=== PATIENT | female | born 1950 | race American Indian/Alaskan Native ===

== ENCOUNTER 2016-12-23 19:49 | Inpatient (IN) | payer MEDICAID, MEDICARE ==
[2016-12-23] MEDS ORDERED: NACL 0.9% 1000 ML 1,000 ML IV ONE (20:00)
--- NOTE | 2016-12-23 20:14 | Emergency Department Report ---
ED General Adult HPI - General Stated complaint: AMS Time Seen by Provider: 12/23/16 19:53 Source: patient, EMS Limitations: Other (confusion- ed caveat taken) - History of Present Illness Initial comments: This is a 66-year-old female brought on by EMS according to family patient has had unsteady gait today. EMS noted on scene that the patient had a blood sugar greater than 600. When family was questioned regarding this they state that the patient was admitted to the hospital approximately a half ago at [place]. She was told at that time she had diabetes and needed to take medications for this. Family failed to comply with this. It was in the hospital [place] due to some mental status changes as well. She was noted that noted at that time to have neurosyphilis. She was successfully treated for this. She also has underlying dementia. According to old notes it appears that she has had encephalopathy in the past as well. Lower emergency department in March 2016 regarding similar symptoms. Aspect portion of this was probably related to her neurosyphilis that it got untreated. For me at this time the patient complains of no pain. She does report dry mouth. I states that she is feeling well. She is somewhat poor historian. -: Gradual, days(s) (5) Radiation: non-radiation Associated Symptoms: denies: chest pain, cough, fever/chills, headaches, rash, shortness of breath Treatments Prior to Arrival: none - Related Data Home Medications Medication Instructions Recorded Confirmed Last Taken Acetaminophen [Tylenol] 650 mg PO Q6HR PRN 04/04/16 04/04/16 Unknown Allergies Allergy/AdvReac Type Severity Reaction Status Date / Time No Known Allergies Allergy Verified 04/04/16 20:10 ED Review of Systems ROS: Stated complaint: AMS Other details as noted in HPI Comment: Unobtainable due to pts medical conditions Constitutional: denies: fever ENT: other (dry mouth). denies: throat pain, dental pain, congestion Cardiovascular: denies: chest pain, palpitations Gastrointestinal: denies: abdominal pain, nausea, vomiting Skin: denies: rash ED Past Medical Hx - Past Medical History Hx Diabetes: No Hx COPD: No - Social History Smoking Status: Never Smoker - Medications Home Medications: Home Medications Medication Instructions Recorded Confirmed Last Taken Type Acetaminophen [Tylenol] 650 mg PO Q6HR PRN 04/04/16 04/04/16 Unknown History ED Physical Exam - General Limitations: Altered Mental Status General appearance: alert, in no apparent distress - Head Head exam: Present: atraumatic, normocephalic - Eye Eye exam: Present: normal appearance, PERRL, EOMI - ENT ENT exam: Present: normal orophraynx, mucous membranes dry, other (poor dentition) - Neck Neck exam: Present: normal inspection - Respiratory Respiratory exam: Present: normal lung sounds bilaterally. Absent: respiratory distress, wheezes, rales - Cardiovascular Cardiovascular Exam: Present: regular rate, normal rhythm. Absent: systolic murmur, diastolic murmur, rubs, gallop - GI/Abdominal GI/Abdominal exam: Present: soft, normal bowel sounds - Extremities Exam Extremities exam: Present: normal inspection, other (moves all extremities purposefully and spontaneously.). Absent: pedal edema, joint swelling, calf tenderness - Back Exam Back exam: Present: normal inspection. Absent: CVA tenderness (R), vertebral tenderness - Neurological Exam Neurological exam: Present: alert, oriented X3. Absent: motor sensory deficit - Psychiatric Psychiatric exam: Present: normal affect, normal mood - Skin Skin exam: Present: warm, dry, intact, normal color. Absent: rash ED Course Vital Signs 12/23/16 12/23/16 12/23/16 20:17 20:26 22:26 Temperature 98.9 F 97.9 F 98.5 F Pulse Rate 86 77 72 Respiratory 24 19 20 Rate Blood Pressure 137/79 Blood Pressure 137/79 115/92 124/74 [Right] O2 Sat by Pulse 97 98 99 Oximetry 12/23/16 12/24/16 12/24/16 23:44 00:00 02:00 Temperature 97.9 F 98.7 F Pulse Rate 73 70 Respiratory 20 20 Rate Blood Pressure Blood Pressure 108/82 107/41 [Right] O2 Sat by Pulse 99 98 99 Oximetry 12/24/16 04:00 Temperature 98.5 F Pulse Rate 64 Respiratory 21 Rate Blood Pressure Blood Pressure 110/68 [Right] O2 Sat by Pulse 100 Oximetry - Reevaluation(s) Reevaluation #1: 12/23/16 20:19 ECG at 2007 with normal sinus rhythm at 87 bpm with normal PA and QRS noted. Normal axis is noted nonspecific T waves are noted. Reevaluation #2: 12/23/16 20:19 This is a patient with mild confusion from here today she is a relatively poor historian. Her vital signs very stable at this time. Will focus on sugars And continue to monitor and evaluated. Reevaluation #3: 12/23/16 22:18 Patient's labs noted. PH is close to appropriate range. She is noted to have positive ketones hematologically. Her co2 was slightly affected as well. Will call her diabetic ketoacidosis. He clearly has some delirium or confusion as well. I suspect most of this is baseline. I do not have family to Corroborate this with. hemodynamically she is comfortable and well-appearing..I Did speak with the hospitalist regarding admission. 12/24/16 06:00 ED Medical Decision Making - Lab Data Result diagrams: 12/23/16 20:15 12/24/16 02:40 Critical care attestation.: If time is entered above; I have spent that time in minutes in the direct care of this critically ill patient, excluding procedure time. ED Disposition Clinical Impression: Delirium Diabetic ketoacidosis Qualifiers: Diabetes mellitus type: type 2 Diabetes mellitus complication detail: without coma Qualified Code(s): E13.10 - Other specified diabetes mellitus with ketoacidosis without coma Disposition: OP ADMITTED IP TO THIS HOSP Is pt being admited?: Yes Does the pt Need Aspirin: No Condition: Stable Time of Disposition: 22:17
[2016-12-23 20:48] LABS: Basophils % (Auto) 0.7 % (0.0-1.8); Eosinophils % (Auto) 0.2 % (0.0-4.3); Hematocrit 39.7 % (30.3-42.9); Hemoglobin 12.5 gm/dl (10.1-14.3); Mean Corpuscular HGB Conc 32 % (30-34); Mean Corpuscular Hemoglobin 27 pg (28-32); Mean Corpuscular Volume 86 fl (79-97); Platelet Count 219 K/mm3 (140-440); Red Cell Distribution Width 14.1 % (13.2-15.2); White Blood Count 9.9 K/mm3 (4.5-11.0)
[2016-12-23 20:57] LABS: Alanine Aminotransferase 20 units/L (7-56); Albumin 4.5 g/dL (3.9-5); Albumin/Globulin Ratio 1.2 %; Alkaline Phosphatase 127 units/L (35-129); Anion Gap 30 mmol/L; BUN/Creatinine Ratio 14.16; Bilirubin,Total 0.6 mg/dL (0.1-1.2); Blood Urea Nitrogen 17 mg/dL (7-17); Calcium 9.9 mg/dL (8.4-10.2); Carbon Dioxide 14 mmol/L (22-30); Chloride 97.2 mmol/L (98-107); Potassium 4.3 mmol/L (3.6-5.0); Sodium 137 mmol/L (137-145); Total Protein 8.2 g/dL (6.3-8.2)
[2016-12-23 21:00] LABS: Glucose 505 mg/dL (65-100)
--- NOTE | 2016-12-23 22:54 | History and Physical Report ---
History of Present Illness Date of examination: 12/24/16 History of present illness: 66-year-old woman history of dementia, diabetes was brought to the emergency room because her blood sugar has been elevated. Patient states she is here because she is sick, she is unable to give a history: Unable to reach family. Review of system is unobtainable PAST SURGICAL HISTORY: Unknown SOCIAL HISTORY: Unknown FAMILY HISTORY: Unknown Medications and Allergies Allergies Allergy/AdvReac Type Severity Reaction Status Date / Time No Known Allergies Allergy Verified 04/04/16 20:10 Home Medications Medication Instructions Recorded Confirmed Last Taken Type Aspirin 81 mg PO DAILY 12/24/16 12/24/16 Unknown History Cholecalciferol (Vitamin D3) 50,000 unit PO DAILY 12/24/16 12/24/16 Unknown History [Decara] Haloperidol [Haldol] 1 mg PO TID 12/24/16 12/24/16 Unknown History Ibuprofen [Motrin] 200 mg PO Q6H PRN 12/24/16 12/24/16 Unknown History Rosuvastatin Calcium 20 mg PO DAILY 12/24/16 12/24/16 Unknown History amLODIPine [Norvasc] 5 mg PO DAILY 12/24/16 12/24/16 Unknown History metFORMIN [Glucophage] 500 mg PO BID 12/24/16 12/24/16 Unknown History Exam - Physical Exam Narrative exam: Gen. appearance: Patient lying in bed, no apparent distress HEENT: Normocephalic, atraumatic, pupils equally round and reactive to light, extraocular movement intact, and no sclericterus,. No JVD or thyromegaly or nodule,neck supple, no carotid bruit ,mucous membranes moist, no exudate or erythema Heart: S1, S2, regular rate and rhythm Lungs: Clear to auscultation bilaterally, breathing comfortable Abdomen: Positive bowel sounds, nontender, nondistended, no organomegaly Extremity: No edema, cyanosis, clubbing Skin: No rash, nodules, warm, dry Neuro: cranial nerves II-12 intact, speech is fluent, motor and sensory intact - Constitutional Vitals: Temp Pulse Resp BP Pulse Ox 98.9 F 86 24 137/79 97 12/23/16 20:17 12/23/16 20:17 12/23/16 20:17 12/23/16 20:17 12/23/16 20:17 Results - Labs CBC & Chem 7: 12/26/16 04:33 12/27/16 05:45 Labs: Abnormal lab results 12/23/16 12/23/16 12/23/16 Range/Units 20:05 20:15 20:15 MCH 27 L (28-32) pg Chloride 97.2 L (98-107) mmol/L Carbon Dioxide 14 L (22-30) mmol/L Glucose 505 H* (65-100) mg/dL POC Glucose 479 H (70-105) Ketones (0.2-2.8) mg/dL 12/23/16 Range/Units 20:22 MCH (28-32) pg Chloride (98-107) mmol/L Carbon Dioxide (22-30) mmol/L Glucose (65-100) mg/dL POC Glucose (70-105) Ketones 41.9 H (0.2-2.8) mg/dL - Imaging and Cardiology EKG: image reviewed Assessment and Plan DKA Dementia Admit to medicine Start IV fluid, insulin drip Check fingersticks, serial chemistry, consult critical care Start DVT prophylaxis
[2016-12-23 22:59] LABS: Bilirubin,Urine NEG (Negative); Blood,Urine MOD (Negative); Ketones,Urine 80 mg/dL (Negative); Leukocyte Esterase,Urine NEG (Negative); Mucus,Urine FEW /HPF; Nitrite,Urine NEG (Negative); Urobilinogen,Urine < 2.0 mg/dL (<2.0)
[2016-12-23] MEDS ORDERED: TYLENOL PR PRN (23:44)
[2016-12-23] MEDS ORDERED: TYLENOL PO PRN (23:44)
[2016-12-23] MEDS ORDERED: D50W (25GM) IV PRN (23:44)
[2016-12-23] MEDS ORDERED: ZOFRAN IV PRN (23:44)
[2016-12-23] MEDS ORDERED: MILK OF MAGNESIA PO PRN (23:44)
[2016-12-23] MEDS ORDERED: DULCOLAX PR PRN (23:44)
[2016-12-23] MEDS ORDERED: NovoLIN R 100 UNITS in NACL 0.9% 99 ML IV SCH (23:45)
[2016-12-23] MEDS ORDERED: NACL 0.9% 1000 ML 1,000 ML IV SCH (23:45)
[2016-12-24 00:48] LABS: Magnesium 2.2 mg/dL (1.7-2.3)
[2016-12-24 01:12] LABS: Anion Gap 24 mmol/L; Blood Urea Nitrogen 15 mg/dL (7-17); Calcium 9.2 mg/dL (8.4-10.2); Carbon Dioxide 17 mmol/L (22-30); Chloride 106.2 mmol/L (98-107); Glucose 171 mg/dL (65-100); Potassium 4.7 mmol/L (3.6-5.0); Sodium 142 mmol/L (137-145)
[2016-12-24 03:22] LABS: Anion Gap 21 mmol/L; BUN/Creatinine Ratio 15.55; Blood Urea Nitrogen 14 mg/dL (7-17); Calcium 9.2 mg/dL (8.4-10.2); Carbon Dioxide 17 mmol/L (22-30); Chloride 108.3 mmol/L (98-107); Glucose 76 mg/dL (65-100); Potassium 3.6 mmol/L (3.6-5.0); Sodium 143 mmol/L (137-145)
[2016-12-24] MEDS: D5W/0.45% NACL/KCL 20 MEQ 20 MEQ/1,000 ML BAG IV SCH ×2 (07:06→15:24)
--- NOTE | 2016-12-24 07:06 | Admit Criteria Form ---
Admission Criteria Documentation: DIABETES Clinical Indications for Admission to Inpatient Care (Place 'X' for any and all applicable criteria): Admission is indicated by presence of ALL (if I & II) or ANY ONE (if III or IV) of the following (1)(2)(3)(4): [X]I. Diabetes is uncontrolled as indicated by ANY ONE of the following: [X]a) Diabetic ketoacidosis as indicated by ALL of the following (8): [X]i) Hyperglycemia (eg, plasma glucose greater than 200 mg/ dL (11.1 mmol/L)) [ ]ii) Acidosis (eg, arterial pH less than 7.30, serum bicarbonate level less than 15 mEq/L (mmol/L)) [X]iii) Moderate ketonuria or ketonemia [ ]b) Hyperglycemic hyperosmolar state as indicated by ALL of the following(9)(10): [ ]i) Neurologic dysfunction (eg, stupor, coma, hemiparesis , seizure)(13) [ ]ii) Plasma glucose greater than 600 mg/dL (33.3 mmol/L) [ ]iii) Serum osmolality greater than 320 mOsm/kg (mmol/kg) [X]c) Severe signs or symptoms secondary to hyperglycemia indicated by ANY ONE of the following: [X]i) Altered mental status(10) [ ]ii) Significant hypovolemia or dehydration [ ]iii) Intractable nausea or vomiting [ ]iv) Unexplained fever or severe infection [ ]v) Severe electrolyte abnormality (eg, hypokalemia, hyperkalemia, hypernatremia) [ ]II. Management at other levels of care (Also use Diabetes: Observation Care as appropriate) is not feasible because of ANY ONE of the following: [ ]a) Condition was not adequately corrected with treatment at other levels of care. [ ]b) Treatment at other levels of care is not appropriate because of condition severity (eg, hyperosmolar coma). [ ]III. Contraindications and/or Inappropriate clinical situations for Observational Care in patients with Diabetes, when ANY ONE of the following is required: [ ]a) Patient require specific diagnostic workup or therapeutic intervention 22 [ ]b) Patient with abnormal vital signs or altered mental status 23 [ ]IV. General contraindications and/or Inappropriate clinical situations for Observational Care in patients with Diabetes, when ANY ONE of the following is required: [ ]a) Prediction of prolongation of LOS based on ANY ONE of the following may be considered as a contraindication for observational care 2, 3, 4, 5, 6, 7, 8, 9, 10, 11 [ ]i) Age > 65 yrs. [ ]ii) Patient arriving by ambulance [ ]iii) Patient with high acuity [ ]iv) Patient requiring vital sign monitoring [ ]v) Patient on IV medication [ ]b) Systolic blood pressures 180mmHg 3,12 [ ]c) Patient with altered mental status including delirium and other alteration of consciousness, (3) [ ]d) Patient whose discharge disposition will be to a intermediate home or rehabilitation home should not be managed in Emergency Department Observation Unit. CMS rule requires 3 days hospital stay before such placement.3,13 [ ]e) Patient with failure to thrive due to broad array of etiologies 3,16,17 [ ]f) Inability to ambulate 3,14 Extended stay beyond goal length of stay may be needed for(3)(20): [ ]a) Treatment of precipitating causes [ ]b) Development of hypoglycemia [ ]c) Complications of treatment [ ]d) Complications of decompensated diabetes (eg, acute gastric dilatation, persistent metabolic or neurologic derangement) [ ]e) Active Comorbidities [ ]f) Older patients( 65 years or older) The original [employer] content created by [employer] has been revised. The portions of the content which have been revised are identified through the use of italic text or in bold,and [email or web address] has neither reviewed nor approved the modified material. All other unmodified content is copyright [employer]. Please see references footnoted in the original [facility] [employer] edition 2016 Admission Criteria Met: Yes
--- NOTE | 2016-12-24 07:17 | Admit Criteria Form ---
Admission Criteria Documentation: DIABETES Clinical Indications for Admission to Inpatient Care (Place 'X' for any and all applicable criteria): Admission is indicated by presence of ALL (if I & II) or ANY ONE (if III or IV) of the following (1)(2)(3)(4): [ X]I. Diabetes is uncontrolled as indicated by ANY ONE of the following: [ ]a) Diabetic ketoacidosis as indicated by ALL of the following (8): [ ]i) Hyperglycemia (eg, plasma glucose greater than 200 mg/ dL (11.1 mmol/L)) [ ]ii) Acidosis (eg, arterial pH less than 7.30, serum bicarbonate level less than 15 mEq/L (mmol/L)) [ ]iii) Moderate ketonuria or ketonemia [ ]b) Hyperglycemic hyperosmolar state as indicated by ALL of the following(9)(10): [ ]i) Neurologic dysfunction (eg, stupor, coma, hemiparesis , seizure)(13) [ ]ii) Plasma glucose greater than 600 mg/dL (33.3 mmol/L) [ ]iii) Serum osmolality greater than 320 mOsm/kg (mmol/kg) [X ]c) Severe signs or symptoms secondary to hyperglycemia indicated by ANY ONE of the following: [X ]i) Altered mental status(10) [ ]ii) Significant hypovolemia or dehydration [ ]iii) Intractable nausea or vomiting [ ]iv) Unexplained fever or severe infection [ ]v) Severe electrolyte abnormality (eg, hypokalemia, hyperkalemia, hypernatremia) [ ]II. Management at other levels of care (Also use Diabetes: Observation Care as appropriate) is not feasible because of ANY ONE of the following: [ ]a) Condition was not adequately corrected with treatment at other levels of care. [ ]b) Treatment at other levels of care is not appropriate because of condition severity (eg, hyperosmolar coma). [ ]III. Contraindications and/or Inappropriate clinical situations for Observational Care in patients with Diabetes, when ANY ONE of the following is required: [ ]a) Patient require specific diagnostic workup or therapeutic intervention 22 [ ]b) Patient with abnormal vital signs or altered mental status 23 [ ]IV. General contraindications and/or Inappropriate clinical situations for Observational Care in patients with Diabetes, when ANY ONE of the following is required: [ ]a) Prediction of prolongation of LOS based on ANY ONE of the following may be considered as a contraindication for observational care 2, 3, 4, 5, 6, 7, 8, 9, 10, 11 [ ]i) Age > 65 yrs. [ ]ii) Patient arriving by ambulance [ ]iii) Patient with high acuity [ ]iv) Patient requiring vital sign monitoring [ ]v) Patient on IV medication [ ]b) Systolic blood pressures 180mmHg 3,12 [ ]c) Patient with altered mental status including delirium and other alteration of consciousness, (3) [ ]d) Patient whose discharge disposition will be to a intermediate home or rehabilitation home should not be managed in Emergency Department Observation Unit. CMS rule requires 3 days hospital stay before such placement.3,13 [ ]e) Patient with failure to thrive due to broad array of etiologies 3,16,17 [ ]f) Inability to ambulate 3,14 Extended stay beyond goal length of stay may be needed for(3)(20): [ ]a) Treatment of precipitating causes [ ]b) Development of hypoglycemia [ ]c) Complications of treatment [ ]d) Complications of decompensated diabetes (eg, acute gastric dilatation, persistent metabolic or neurologic derangement) [ ]e) Active Comorbidities [ ]f) Older patients( 65 years or older) The original [employer] content created by [employer] has been revised. The portions of the content which have been revised are identified through the use of italic text or in bold,and [facility] has neither reviewed nor approved the modified material. All other unmodified content is copyright [facility]. Please see references footnoted in the original [facility] edition 2016 Admission Criteria Met: Yes
[2016-12-24 08:38] LABS: Anion Gap 23 mmol/L; Blood Urea Nitrogen 14 mg/dL (7-17); Calcium 9.3 mg/dL (8.4-10.2); Carbon Dioxide 17 mmol/L (22-30); Glucose 183 mg/dL (65-100); Potassium 4.3 mmol/L (3.6-5.0); Sodium 144 mmol/L (137-145)
[2016-12-24] MEDS ORDERED: LOVENOX SUB-Q SCH (10:00)
--- NOTE | 2016-12-24 10:18 | XRay Report ---
AP CHEST: HISTORY: Shortness of breath AP view of the chest demonstrates a normal mediastinal and cardiac contour with clear lungs and normal bony and soft tissue structures. IMPRESSION: No acute cardiopulmonary process.
[2016-12-24] MEDS: LOVENOX SUB-Q SCH (10:52)
[2016-12-24 14:23] LABS: BUN/Creatinine Ratio 16.25; Blood Urea Nitrogen 13 mg/dL (7-17); Calcium 8.5 mg/dL (8.4-10.2); Carbon Dioxide 16 mmol/L (22-30); Glucose 122 mg/dL (65-100)
[2016-12-24 14:24] LABS: Anion Gap 18 mmol/L; Chloride 110.1 mmol/L (98-107); Potassium 3.6 mmol/L (3.6-5.0); Sodium 140 mmol/L (137-145)
--- NOTE | 2016-12-24 15:03 | Consultation ---
History of Present Illness Consult date: 12/24/16 Requesting physician: CORAZON SHEETS Reason for consult: other (DKA) History of present illness: 66 yo brought to ED with confusion/altered mental status. Unable to provide history and no family present. Currently more alert and denying SOB, chest pain , N/V fevers, chills, chest pain. Wants to eat. On insulin drip. Active Medications Acetaminophen (Tylenol) 650 mg MI Q6H PRN PRN Reason: Pain MILD(1-3)/Fever >100.5/CONDON Acetaminophen (Tylenol) 650 mg PO Q6H PRN PRN Reason: Pain Bisacodyl (Dulcolax) 10 mg MI QDAY PRN PRN Reason: constipation unrelieved by MOM Dextrose (D50w (25gm)) 0 ml IV ONCE PRN PRN Reason: Hypoglycemia Enoxaparin Sodium (Lovenox) 40 mg SUB-Q QDAY@1000 MATILDE Last Admin: 12/24/16 10:52 Dose: 40 mg Potassium Chloride/Dextrose/Sod Cl (D5w/0.45% Nacl/Kcl 20 Meq) 20 meq in 1,000 mls @ 125 mls/hr IV DIRECT MATILDE Last Admin: 12/24/16 07:06 Dose: 125 mls/hr Sodium Chloride (Nacl 0.9% 1000 Ml) 1,000 mls @ 150 mls/hr IV DIRECT MATILDE Insulin Human Regular 100 (units/ Sodium Chloride) 100 mls @ 1 mls/hr IV TITR MATILDE; 1 UNITS/HR PRN Reason: Protocol Last Titration: 12/24/16 14:00 Dose: 2 units/hr, 2 mls/hr Magnesium Hydroxide (Milk Of Magnesia) 30 ml PO Q4H PRN PRN Reason: Constipation Ondansetron HCl (Zofran) 4 mg IV Q8H PRN PRN Reason: N/V unrelieved by Reglan Past History Past Medical History: other (DM, HTN, ? Dementia per chart) Past Surgical History: Other (Unable to obtain) Social history: full code. denies: smoking, alcohol abuse, prescription drug abuse, IV drug use Family history: other (No pulm issues reported) Medications and Allergies Allergies Allergy/AdvReac Type Severity Reaction Status Date / Time No Known Allergies Allergy Verified 04/04/16 20:10 Home Medications Medication Instructions Recorded Confirmed Last Taken Type Aspirin 81 mg PO DAILY 12/24/16 12/24/16 Unknown History Cholecalciferol (Vitamin D3) 50,000 unit PO DAILY 12/24/16 12/24/16 Unknown History [Decara] Haloperidol [Haldol] 1 mg PO TID 12/24/16 12/24/16 Unknown History Ibuprofen [Motrin] 200 mg PO Q6H PRN 12/24/16 12/24/16 Unknown History Rosuvastatin Calcium 20 mg PO DAILY 12/24/16 12/24/16 Unknown History amLODIPine [Norvasc] 5 mg PO DAILY 12/24/16 12/24/16 Unknown History metFORMIN [Glucophage] 500 mg PO BID 12/24/16 12/24/16 Unknown History Active Meds: Active Medications Acetaminophen (Tylenol) 650 mg MI Q6H PRN PRN Reason: Pain MILD(1-3)/Fever >100.5/CONDON Acetaminophen (Tylenol) 650 mg PO Q6H PRN PRN Reason: Pain Bisacodyl (Dulcolax) 10 mg MI QDAY PRN PRN Reason: constipation unrelieved by MOM Dextrose (D50w (25gm)) 0 ml IV ONCE PRN PRN Reason: Hypoglycemia Enoxaparin Sodium (Lovenox) 40 mg SUB-Q QDAY@1000 MATILDE Last Admin: 12/24/16 10:52 Dose: 40 mg Potassium Chloride/Dextrose/Sod Cl (D5w/0.45% Nacl/Kcl 20 Meq) 20 meq in 1,000 mls @ 125 mls/hr IV DIRECT MATILDE Last Admin: 12/24/16 07:06 Dose: 125 mls/hr Sodium Chloride (Nacl 0.9% 1000 Ml) 1,000 mls @ 150 mls/hr IV DIRECT MATILDE Insulin Human Regular 100 (units/ Sodium Chloride) 100 mls @ 1 mls/hr IV TITR MATILDE; 1 UNITS/HR PRN Reason: Protocol Last Titration: 12/24/16 14:00 Dose: 2 units/hr, 2 mls/hr Magnesium Hydroxide (Milk Of Magnesia) 30 ml PO Q4H PRN PRN Reason: Constipation Ondansetron HCl (Zofran) 4 mg IV Q8H PRN PRN Reason: N/V unrelieved by Reglan Review of Systems All systems: negative Physical Examination Vital signs: Vital Signs Temp Pulse Resp BP Pulse Ox 98.9 F 24 L 24 137/79 97 12/23/16 20:17 12/23/16 20:17 12/23/16 20:17 12/23/16 20:17 12/23/16 20:17 Vital Signs - 24 hr 12/23/16 12/23/16 12/23/16 20:17 20:26 22:10 Temperature 98.9 F 97.9 F Pulse Rate 86 77 Pulse Rate [ None] Respiratory 24 19 Rate Blood Pressure 137/79 Blood Pressure 137/79 115/92 [Right] O2 Sat by Pulse 97 98 99 Oximetry 12/23/16 12/23/16 12/23/16 22:20 22:26 22:30 Temperature 98.5 F Pulse Rate 68 72 71 Pulse Rate [ None] Respiratory 20 Rate Blood Pressure 124/74 124/74 Blood Pressure 124/74 [Right] O2 Sat by Pulse 99 99 99 Oximetry 12/23/16 12/23/16 12/23/16 22:40 22:50 23:00 Temperature Pulse Rate 75 71 Pulse Rate [ None] Respiratory Rate Blood Pressure 119/81 119/81 119/81 Blood Pressure [Right] O2 Sat by Pulse 99 99 99 Oximetry 12/23/16 12/23/16 12/23/16 23:10 23:20 23:30 Temperature Pulse Rate 69 72 Pulse Rate [ None] Respiratory 18 20 Rate Blood Pressure 108/82 108/82 108/82 Blood Pressure [Right] O2 Sat by Pulse 99 99 98 Oximetry 12/23/16 12/23/16 12/23/16 23:40 23:44 23:50 Temperature 97.9 F Pulse Rate 72 73 70 Pulse Rate [ None] Respiratory 18 20 18 Rate Blood Pressure 108/82 108/82 Blood Pressure 108/82 [Right] O2 Sat by Pulse 100 99 99 Oximetry 12/24/16 12/24/16 12/24/16 00:00 00:10 00:20 Temperature Pulse Rate 72 72 71 Pulse Rate [ None] Respiratory 24 17 19 Rate Blood Pressure 108/82 109/73 109/73 Blood Pressure [Right] O2 Sat by Pulse 99 98 98 Oximetry 12/24/16 12/24/16 12/24/16 00:30 00:40 00:50 Temperature Pulse Rate 68 76 70 Pulse Rate [ None] Respiratory 19 12 13 Rate Blood Pressure 109/73 123/72 123/72 Blood Pressure [Right] O2 Sat by Pulse 99 99 98 Oximetry 12/24/16 12/24/16 12/24/16 01:00 01:10 01:20 Temperature Pulse Rate 69 70 70 Pulse Rate [ None] Respiratory 14 14 14 Rate Blood Pressure 123/72 135/79 135/79 Blood Pressure [Right] O2 Sat by Pulse 97 97 98 Oximetry 12/24/16 12/24/16 12/24/16 01:30 01:40 01:51 Temperature Pulse Rate 68 70 85 Pulse Rate [ None] Respiratory 14 15 23 Rate Blood Pressure 135/79 109/70 109/70 Blood Pressure [Right] O2 Sat by Pulse 99 98 96 Oximetry 12/24/16 12/24/16 12/24/16 02:00 02:01 02:11 Temperature 98.7 F Pulse Rate 70 70 67 Pulse Rate [ None] Respiratory 20 20 12 Rate Blood Pressure 107/41 107/41 Blood Pressure 107/41 [Right] O2 Sat by Pulse 99 99 98 Oximetry 12/24/16 12/24/16 12/24/16 02:21 02:31 02:41 Temperature Pulse Rate 68 68 76 Pulse Rate [ None] Respiratory 12 12 25 H Rate Blood Pressure 107/41 108/78 108/78 Blood Pressure [Right] O2 Sat by Pulse 98 96 97 Oximetry 12/24/16 12/24/16 12/24/16 02:51 03:01 03:19 Temperature Pulse Rate 79 78 Pulse Rate [ None] Respiratory 25 H 16 Rate Blood Pressure 108/78 108/78 136/78 Blood Pressure [Right] O2 Sat by Pulse 97 99 99 Oximetry 12/24/16 12/24/16 12/24/16 03:21 03:30 03:41 Temperature Pulse Rate 70 66 64 Pulse Rate [ None] Respiratory 17 19 25 H Rate Blood Pressure 136/78 123/70 123/70 Blood Pressure [Right] O2 Sat by Pulse 99 99 98 Oximetry 12/24/16 12/24/16 12/24/16 03:51 04:00 04:01 Temperature 98.5 F Pulse Rate 64 64 67 Pulse Rate [ None] Respiratory 13 21 21 Rate Blood Pressure 123/70 110/68 Blood Pressure 110/68 [Right] O2 Sat by Pulse 98 100 98 Oximetry 12/24/16 12/24/16 12/24/16 04:11 04:21 04:31 Temperature Pulse Rate 61 63 62 Pulse Rate [ None] Respiratory 15 13 16 Rate Blood Pressure 110/68 110/68 162/72 Blood Pressure [Right] O2 Sat by Pulse 99 98 99 Oximetry 12/24/16 12/24/16 12/24/16 04:41 04:51 05:01 Temperature Pulse Rate 66 71 77 Pulse Rate [ None] Respiratory 25 H 15 23 Rate Blood Pressure 110/68 110/68 110/68 Blood Pressure [Right] O2 Sat by Pulse 98 92 99 Oximetry 12/24/16 12/24/16 12/24/16 05:11 05:21 05:31 Temperature Pulse Rate 68 71 66 Pulse Rate [ None] Respiratory 15 21 24 Rate Blood Pressure 110/68 110/68 110/68 Blood Pressure [Right] O2 Sat by Pulse Oximetry 12/24/16 12/24/16 12/24/16 05:41 05:51 06:01 Temperature Pulse Rate 65 81 74 Pulse Rate [ None] Respiratory 15 18 16 Rate Blood Pressure 110/68 110/68 110/68 Blood Pressure [Right] O2 Sat by Pulse Oximetry 12/24/16 12/24/16 12/24/16 06:35 06:41 06:51 Temperature Pulse Rate Pulse Rate [ None] Respiratory Rate Blood Pressure 162/80 162/80 162/80 Blood Pressure [Right] O2 Sat by Pulse 98 98 97 Oximetry 12/24/16 12/24/16 12/24/16 07:01 07:11 07:21 Temperature Pulse Rate Pulse Rate [ None] Respiratory Rate Blood Pressure 148/82 148/82 148/82 Blood Pressure [Right] O2 Sat by Pulse 98 97 99 Oximetry 12/24/16 12/24/16 12/24/16 07:31 07:41 07:51 Temperature 97.4 F L Pulse Rate 79 Pulse Rate [ None] Respiratory 16 Rate Blood Pressure 148/82 148/82 148/82 Blood Pressure 142/80 [Right] O2 Sat by Pulse 99 98 98 Oximetry 12/24/16 12/24/16 12/24/16 08:01 08:11 08:21 Temperature Pulse Rate Pulse Rate [ None] Respiratory Rate Blood Pressure 148/82 148/82 148/82 Blood Pressure [Right] O2 Sat by Pulse 80 L 100 97 Oximetry 12/24/16 12/24/16 12/24/16 08:30 08:35 08:45 Temperature 98.2 F Pulse Rate 69 Pulse Rate [ 68 None] Respiratory 20 14 Rate Blood Pressure 131/84 140/72 Blood Pressure 131/84 [Right] O2 Sat by Pulse 97 98 98 Oximetry 12/24/16 12/24/16 12/24/16 09:00 09:18 09:21 Temperature 98.2 F Pulse Rate 70 73 Pulse Rate [ None] Respiratory 13 12 Rate Blood Pressure Blood Pressure [Right] O2 Sat by Pulse 98 98 Oximetry 12/24/16 12/24/16 12/24/16 09:31 09:41 09:51 Temperature Pulse Rate 73 71 75 Pulse Rate [ None] Respiratory 13 13 12 Rate Blood Pressure Blood Pressure [Right] O2 Sat by Pulse 98 98 100 Oximetry 12/24/16 12/24/16 12/24/16 10:00 10:11 10:21 Temperature Pulse Rate 72 71 71 Pulse Rate [ None] Respiratory 12 13 16 Rate Blood Pressure 121/87 121/87 121/87 Blood Pressure [Right] O2 Sat by Pulse 100 98 99 Oximetry 12/24/16 12/24/16 12/24/16 10:31 10:41 10:51 Temperature Pulse Rate 70 69 68 Pulse Rate [ None] Respiratory 13 13 13 Rate Blood Pressure 121/87 121/87 121/87 Blood Pressure [Right] O2 Sat by Pulse 99 100 98 Oximetry 12/24/16 12/24/16 12/24/16 11:00 11:11 11:21 Temperature Pulse Rate 70 70 71 Pulse Rate [ None] Respiratory 12 13 16 Rate Blood Pressure 123/81 123/81 123/81 Blood Pressure [Right] O2 Sat by Pulse 99 99 99 Oximetry 12/24/16 12/24/16 12/24/16 11:31 11:41 11:51 Temperature Pulse Rate 72 69 69 Pulse Rate [ None] Respiratory 13 13 24 Rate Blood Pressure 123/81 123/81 123/81 Blood Pressure [Right] O2 Sat by Pulse 100 100 99 Oximetry 12/24/16 12/24/16 12/24/16 12:00 12:01 12:11 Temperature 98.2 F Pulse Rate 67 71 Pulse Rate [ None] Respiratory 15 19 Rate Blood Pressure 140/78 140/78 Blood Pressure [Right] O2 Sat by Pulse 96 99 Oximetry 12/24/16 12/24/16 12/24/16 12:21 12:31 12:41 Temperature Pulse Rate 71 70 67 Pulse Rate [ None] Respiratory 28 H 24 18 Rate Blood Pressure 140/78 140/78 140/78 Blood Pressure [Right] O2 Sat by Pulse 99 100 97 Oximetry 12/24/16 12/24/16 12/24/16 12:51 13:00 13:11 Temperature Pulse Rate 66 64 63 Pulse Rate [ None] Respiratory 14 18 13 Rate Blood Pressure 140/78 137/69 137/69 Blood Pressure [Right] O2 Sat by Pulse 92 99 100 Oximetry 12/24/16 12/24/16 12/24/16 13:21 13:31 13:41 Temperature Pulse Rate 64 64 63 Pulse Rate [ None] Respiratory 20 18 14 Rate Blood Pressure 137/69 137/69 137/69 Blood Pressure [Right] O2 Sat by Pulse 99 99 97 Oximetry 12/24/16 12/24/16 12/24/16 13:51 14:01 14:11 Temperature Pulse Rate 62 67 63 Pulse Rate [ None] Respiratory 17 13 16 Rate Blood Pressure 137/69 140/115 140/115 Blood Pressure [Right] O2 Sat by Pulse 99 98 99 Oximetry General appearance: no acute distress, alert Eyes: non-icteric ENT: oropharynx moist Neck: supple Effort: normal Ascultation: Bilateral: clear Cardiovascular: regular rate and rhythm (no mrg) Gastrointestinal: normoactive bowel sounds, soft, non-tender, non-distended Integumentary: normal Extremities: no cyanosis, no edema, pink and warm Musculoskeletal: no deformities non-focal exam, pupils equal and round, CN II-XII normal, other (mildly confused ) mood appropriate, affect normal Results - Laboratory Findings CBC and BMP: 12/23/16 20:15 12/24/16 13:34 Abnormal lab findings: Abnormal Labs 12/24/16 12/24/16 12/24/16 00:01 00:01 02:40 Chloride 108.3 H Carbon Dioxide 17 L 17 L Glucose 171 H POC Glucose Phosphorus 2.0 L 12/24/16 12/24/16 12/24/16 06:29 07:28 08:10 Chloride 108.0 H Carbon Dioxide 17 L Glucose 183 H POC Glucose 141 H 192 H Phosphorus 12/24/16 12/24/16 12/24/16 08:18 08:56 09:53 Chloride Carbon Dioxide Glucose POC Glucose 200 H 165 H 124 H Phosphorus 12/24/16 12/24/16 12/24/16 13:13 13:34 14:00 Chloride 110.1 H Carbon Dioxide 16 L Glucose 122 H POC Glucose 115 H 143 H Phosphorus - Diagnostic Findings Chest x-ray: report reviewed, image reviewed Assessment and Plan Imp: 1. DKA, ? compliance; no evidence of infection/cardiac issues 2. Volume depletion 3. Mild KATERYNA 2/2 above, resolved 4. Metabolic encephalopathy 5. ? Dem,ent[place] Rec: 1. Cont. insulin drip until gap closed, then start diet + long-acting insulin; does not appear Metformin will be good enough long-term; check HgBalc 2. Cont. IVFs 3. DVT PPx 4. Hopeful to floor soon No family present
[2016-12-24 16:14] LABS: Anion Gap 21 mmol/L; Blood Urea Nitrogen 12 mg/dL (7-17); Calcium 8.8 mg/dL (8.4-10.2); Carbon Dioxide 17 mmol/L (22-30); Chloride 106.5 mmol/L (98-107); Glucose 145 mg/dL (65-100); Potassium 4.1 mmol/L (3.6-5.0); Sodium 140 mmol/L (137-145)
[2016-12-24] MEDS ORDERED: SODIUM PHOSPHATE 30 MMOL in NACL 0.9% 500 ML 500 ML IV ONE (16:36)
--- NOTE | 2016-12-24 16:37 | Progress Note ---
Assessment and Plan Assessment and plan: Diaabetic ketoacidosis. Continue Insulin drip, iv fluids. She was on Metformin. Will hold for now. Dementia. Was on haldol. Will hold - she is Lethargic Hypertension. Resume Norvasc Hypokalemia. On Potassium containing iv fluid Hyperlipidemia. Cont statin DVT prophylaxis with Lovenox Full code status. History Interval history: Patient admitted with DKA, no vomiting Hospitalist Physical - Physical exam Narrative exam: Gen: No acute distress HEENT :Normocephalic atraumatic Neck : Supple no JVD Lungs: clear to auscultation bilaterally, no crackles or wheeze Heart :S1 and S2 regular, no murmurs, rubs or gallop Abdomen : soft non-tender, non-distended, normal bowel sounds Extremities: no edema clubbing or cyanosis, Neuro: lethargic, - Constitutional Vitals: Temp Pulse Resp BP Pulse Ox 98.0 F 61 16 118/68 98 12/24/16 15:59 12/24/16 16:00 12/24/16 16:00 12/24/16 16:00 12/24/16 16:00 Results - Labs CBC & Chem 7: 12/23/16 20:15 12/25/16 00:42 Labs: Laboratory Last Values WBC 9.9 K/mm3 (4.5-11.0) 12/23/16 20:15 RBC 4.60 M/mm3 (3.65-5.03) 12/23/16 20:15 Hgb 12.5 gm/dl (10.1-14.3) 12/23/16 20:15 Hct 39.7 % (30.3-42.9) 12/23/16 20:15 MCV 86 fl (79-97) 12/23/16 20:15 MCH 27 pg (28-32) L 12/23/16 20:15 MCHC 32 % (30-34) 12/23/16 20:15 RDW 14.1 % (13.2-15.2) 12/23/16 20:15 Plt Count 219 K/mm3 (140-440) 12/23/16 20:15 Lymph % (Auto) 33.9 % (13.4-35.0) 12/23/16 20:15 [place] % (Auto) 6.6 % (0.0-7.3) 12/23/16 20:15 Eos % (Auto) 0.2 % (0.0-4.3) 12/23/16 20:15 Baso % (Auto) 0.7 % (0.0-1.8) 12/23/16 20:15 Lymph # 3.3 K/mm3 (1.2-5.4) 12/23/16 20:15 [place] # 0.7 K/mm3 (0.0-0.8) 12/23/16 20:15 Eos # 0.0 K/mm3 (0.0-0.4) 12/23/16 20:15 Baso # 0.1 K/mm3 (0.0-0.1) 12/23/16 20:15 Seg Neutrophils % 58.6 % (40.0-70.0) 12/23/16 20:15 Seg Neutrophils # 5.8 K/mm3 (1.8-7.7) 12/23/16 20:15 VBG pH 7.371 (7.320-7.420) 12/23/16 20:22 Sodium 140 mmol/L (137-145) 12/24/16 15:03 Potassium 4.1 mmol/L (3.6-5.0) 12/24/16 15:03 Chloride 106.5 mmol/L (98-107) 12/24/16 15:03 Carbon Dioxide 17 mmol/L (22-30) L 12/24/16 15:03 Anion Gap 21 mmol/L 12/24/16 15:03 BUN 12 mg/dL (7-17) 12/24/16 15:03 Creatinine 1.0 mg/dL (0.7-1.2) 12/24/16 15:03 Estimated GFR > 60 ml/min 12/24/16 15:03 BUN/Creatinine Ratio 12.00 % 12/24/16 15:03 Glucose 145 mg/dL (65-100) H 12/24/16 15:03 POC Glucose 143 (70-105) H 12/24/16 14:00 Calcium 8.8 mg/dL (8.4-10.2) 12/24/16 15:03 Phosphorus 2.0 mg/dL (2.5-4.5) L 12/24/16 00:01 Magnesium 2.2 mg/dL (1.7-2.3) 12/24/16 00:01 Total Bilirubin 0.6 mg/dL (0.1-1.2) 12/23/16 20:15 AST 26 units/L (5-40) 12/23/16 20:15 ALT 20 units/L (7-56) 12/23/16 20:15 Alkaline Phosphatase 127 units/L (35-129) 12/23/16 20:15 Troponin T < 0.010 ng/mL (0.00-0.029) 12/23/16 20:15 Total Protein 8.2 g/dL (6.3-8.2) 12/23/16 20:15 Albumin 4.5 g/dL (3.9-5) 12/23/16 20:15 Albumin/Globulin Ratio 1.2 % 12/23/16 20:15 Urine Color Straw (Yellow) 12/23/16 22:27 Urine Turbidity Clear (Clear) 12/23/16 22: Urine pH 5.0 (5.0-7.0) 12/23/16 22: Ur Specific [place] 1.030 (1.003-1.030) 12/23/16 22: Urine Protein 30 mg/dl mg/dL (Negative) 12/23/16 22: Urine Glucose (UA) >=500 mg/dL (Negative) 12/23/16 22: Urine Ketones 80 mg/dL (Negative) 12/23/16 22: Urine Blood Mod (Negative) 12/23/16 22: Urine Nitrite Neg (Negative) 12/23/16 22: Urine Bilirubin Neg (Negative) 12/23/16 22: Urine Urobilinogen < 2.0 mg/dL (<2.0) 12/23/16 22:27 Ur Leukocyte Esterase Neg (Negative) 12/23/16 22:27 Urine WBC (Auto) 2.0 /HPF (0.0-6.0) 12/23/16 22: Urine RBC (Auto) 5.0 /HPF (0.0-6.0) 12/23/16 22: U Epithel Cells (Auto) 1.0 /HPF (0-13.0) 12/23/16 22: Urine Mucus Few /HPF 12/23/16 22:27 Ketones 41.9 mg/dL (0.2-2.8) H 12/23/16 20:22
[2016-12-24 19:44] LABS: Anion Gap 19 mmol/L; Blood Urea Nitrogen 12 mg/dL (7-17); Calcium 8.6 mg/dL (8.4-10.2); Carbon Dioxide 19 mmol/L (22-30); Chloride 106.6 mmol/L (98-107); Glucose 74 mg/dL (65-100); Potassium 3.3 mmol/L (3.6-5.0); Sodium 141 mmol/L (137-145)
[2016-12-25 01:11] LABS: Anion Gap 16 mmol/L; Blood Urea Nitrogen 10 mg/dL (7-17); Carbon Dioxide 15 mmol/L (22-30); Chloride 110.8 mmol/L (98-107); Glucose 125 mg/dL (65-100); Potassium 3.3 mmol/L (3.6-5.0); Sodium 138 mmol/L (137-145)
[2016-12-25 04:45] LABS: Hematocrit 35.9 % (30.3-42.9); Hemoglobin 11.3 gm/dl (10.1-14.3); Mean Corpuscular HGB Conc 31 % (30-34); Mean Corpuscular Hemoglobin 27 pg (28-32); Mean Corpuscular Volume 85 fl (79-97); Platelet Count 184 K/mm3 (140-440); Red Blood Count 4.22 M/mm3 (3.65-5.03); Red Cell Distribution Width 14.1 % (13.2-15.2); White Blood Count 7.2 K/mm3 (4.5-11.0)
[2016-12-25 04:53] LABS: Anion Gap 16 mmol/L; BUN/Creatinine Ratio 11.25; Blood Urea Nitrogen 9 mg/dL (7-17); Calcium 8.1 mg/dL (8.4-10.2); Carbon Dioxide 18 mmol/L (22-30); Glucose 116 mg/dL (65-100); Potassium 3.5 mmol/L (3.6-5.0); Sodium 140 mmol/L (137-145)
[2016-12-25] MEDS ORDERED: K-DUR PO ONE (08:00)
[2016-12-25] MEDS ORDERED: D50W (25GM) IV PRN (08:05)
[2016-12-25] MEDS ORDERED: CHOLECALCIFEROL 50000 UNIT PO SCH (10:00)
[2016-12-25] MEDS ORDERED: NON-FORMULARY (Rosuvastatin Calcium [Rosuvastatin Calcium] 20 MG) PO SCH (10:00)
[2016-12-25] MEDS: NORVASC PO SCH ×2 (10:12→12:50)
[2016-12-25] MEDS: BABY ASPIRIN PO SCH (10:13)
[2016-12-25] MEDS: LOVENOX SUB-Q SCH (10:13)
[2016-12-25] MEDS: NOVOLOG SUB-Q SCH ×3 (12:25→22:30)
--- NOTE | 2016-12-25 13:48 | Progress Note ---
Assessment and Plan Imp: 1. DKA, likely due to non-compliance; no evidence of infection/cardiac issues 2. Volume depletion, resolved 3. Mild KATERYNA 2/2 above, resolved 4. Metabolic encephalopathy 5. ? Dementia Rec: 1. Needs outpatient insulin regimen and diabetes education to patient and family ; defer to primary 2. Cont. IVFs 3. DVT PPx 4. Can go home from our standpoint No family present Subjective Date of service: 12/25/16 Principal diagnosis: DKA Interval history: No events. Poor historian. Eating eggs and pancakes. No complaints on RA. Active Medications Acetaminophen (Tylenol) 650 mg HI Q6H PRN PRN Reason: Pain MILD(1-3)/Fever >100.5/CONDON Acetaminophen (Tylenol) 650 mg PO Q6H PRN PRN Reason: Pain Amlodipine Besylate (Norvasc) 5 mg PO DAILY [facility] Last Admin: 12/25/16 12:50 Dose: 5 mg Aspirin (Baby Aspirin) 81 mg PO DAILY [facility] Last Admin: 12/25/16 10:13 Dose: Not Given Atorvastatin Calcium (Lipitor) 40 mg PO QHS [facility] Bisacodyl (Dulcolax) 10 mg HI QDAY PRN PRN Reason: constipation unrelie[place] [facility] Dextrose (D50w (25gm)) 50 ml IV PRN PRN PRN Reason: Hypoglycemia Enoxaparin Sodium (Lovenox) 40 mg SUB-Q QDAY@1000 [facility] Last Admin: 12/25/16 10:13 Dose: 40 mg Sodium Chloride (Nacl 0.9% 1000 Ml) 1,000 mls @ 150 mls/hr IV DIRECT [facility] Insulin Aspart (Novolog) 0 units SUB-Q ACHS [facility] PRN Reason: Protocol Last Admin: 12/25/16 12:25 Dose: 4 units Insulin Human Isoph/Insulin Regular (Novolin 70/30) 30 unit SUB-Q QAM [facility] Last Admin: 12/25/16 10:12 Dose: 30 unit Insulin Human Isoph/Insulin Regular (Novolin 70/30) 15 unit SUB-Q QPM [facility] Magnesium Hydroxide (Milk Of Magnesia) 30 ml PO Q4H PRN PRN Reason: Constipation Ondansetron HCl (Zofran) 4 mg IV Q8H PRN PRN Reason: N/V unrelieved by Reglan Objective Vital Signs - 12hr 12/25/16 12/25/16 12/25/16 01:51 02:01 02:11 Pulse Rate 66 80 66 Pulse Rate [ None] Respiratory 15 16 20 Rate Respiratory Rate [ Generalized] Blood Pressure 133/65 133/65 133/65 O2 Sat by Pulse 100 98 97 Oximetry 12/25/16 12/25/16 12/25/16 02:21 02:31 02:41 Pulse Rate 67 65 63 Pulse Rate [ None] Respiratory 20 31 H 11 L Rate Respiratory Rate [ Generalized] Blood Pressure 133/65 133/65 133/65 O2 Sat by Pulse 100 Oximetry 12/25/16 12/25/16 12/25/16 02:45 02:51 03:01 Pulse Rate 60 64 65 Pulse Rate [ None] Respiratory 18 15 13 Rate Respiratory 18 Rate [ Generalized] Blood Pressure 133/65 156/90 O2 Sat by Pulse 98 Oximetry 12/25/16 12/25/16 12/25/16 03:11 03:21 03:31 Pulse Rate 65 69 64 Pulse Rate [ None] Respiratory 15 22 16 Rate Respiratory Rate [ Generalized] Blood Pressure 156/90 156/90 156/90 O2 Sat by Pulse Oximetry 12/25/16 12/25/16 12/25/16 03:41 03:50 04:01 Pulse Rate 64 66 Pulse Rate [ None] Respiratory 14 21 Rate Respiratory Rate [ Generalized] Blood Pressure 156/90 156/90 84/35 O2 Sat by Pulse Oximetry 12/25/16 12/25/16 12/25/16 04:11 04:20 04:31 Pulse Rate 92 H 79 75 Pulse Rate [ None] Respiratory 16 22 13 Rate Respiratory Rate [ Generalized] Blood Pressure 84/35 152/78 152/78 O2 Sat by Pulse Oximetry 12/25/16 12/25/16 12/25/16 04:41 04:51 05:01 Pulse Rate 72 67 68 Pulse Rate [ None] Respiratory 21 18 19 Rate Respiratory Rate [ Generalized] Blood Pressure 152/78 84/35 161/140 O2 Sat by Pulse Oximetry 12/25/16 12/25/16 12/25/16 05:11 05:21 05:29 Pulse Rate 69 66 Pulse Rate [ 71 None] Respiratory 17 18 21 Rate Respiratory Rate [ Generalized] Blood Pressure 161/140 152/71 153/71 O2 Sat by Pulse Oximetry 12/25/16 12/25/1612/25/17 05:31 05:41 05:51 Pulse Rate 68 65 67 Pulse Rate [ None] Respiratory 13 15 21 Rate Respiratory Rate [ Generalized] Blood Pressure 152/71 152/71 152/71 O2 Sat by Pulse Oximetry 12/25/16 12/25/16 12/25/16 06:01 06:11 06:21 Pulse Rate 70 72 75 Pulse Rate [ None] Respiratory 18 21 22 Rate Respiratory Rate [ Generalized] Blood Pressure 147/110 147/110 147/110 O2 Sat by Pulse Oximetry 12/25/16 12/25/16 12/25/16 06:31 06:41 06:50 Pulse Rate 69 73 73 Pulse Rate [ None] Respiratory 18 17 Rate Respiratory Rate [ Generalized] Blood Pressure 147/110 147/110 O2 Sat by Pulse 98 Oximetry 12/25/16 12/25/16 12/25/16 06:51 07:00 07:11 Pulse Rate 74 72 73 Pulse Rate [ None] Respiratory 30 H 17 15 Rate Respiratory Rate [ Generalized] Blood Pressure 147/110 153/77 153/77 O2 Sat by Pulse 100 98 99 Oximetry 12/25/16 12/25/16 12/25/16 07:21 07:31 07:41 Pulse Rate 75 90 75 Pulse Rate [ None] Respiratory 22 26 H 14 Rate Respiratory Rate [ Generalized] Blood Pressure 153/77 153/77 153/77 O2 Sat by Pulse 99 98 97 Oximetry 12/25/16 12/25/16 12/25/16 07:51 08:00 08:01 Pulse Rate 78 79 Pulse Rate [ None] Respiratory 18 22 21 Rate Respiratory Rate [ Generalized] Blood Pressure 153/77 150/84 O2 Sat by Pulse 100 Oximetry 12/25/16 12/25/16 12/25/16 08:11 08:21 08:31 Pulse Rate 87 81 83 Pulse Rate [ None] Respiratory 31 H 19 24 Rate Respiratory Rate [ Generalized] Blood Pressure 150/84 150/84 150/84 O2 Sat by Pulse Oximetry 12/25/16 12/25/16 12/25/16 08:41 08:51 09:01 Pulse Rate 83 87 86 Pulse Rate [ None] Respiratory 25 H 17 21 Rate Respiratory Rate [ Generalized] Blood Pressure 150/84 150/84 131/89 O2 Sat by Pulse Oximetry 12/25/16 12/25/16 12/25/16 09:11 09:21 09:31 Pulse Rate 86 82 81 Pulse Rate [ None] Respiratory 22 16 24 Rate Respiratory Rate [ Generalized] Blood Pressure 131/89 131/89 131/89 O2 Sat by Pulse Oximetry 12/25/16 12/25/16 12/25/16 09:41 09:51 10:00 Pulse Rate 75 77 77 Pulse Rate [ None] Respiratory 18 25 H Rate Respiratory Rate [ Generalized] Blood Pressure 131/89 131/89 O2 Sat by Pulse Oximetry 12/25/16 12/25/16 12/25/16 10:01 10:12 12:50 Pulse Rate 76 76 89 Pulse Rate [ None] Respiratory 29 H Rate Respiratory Rate [ Generalized] Blood Pressure 131/89 150/78 143/77 O2 Sat by Pulse Oximetry Constitutional: no acute distress, alert Eyes: non-icteric ENT: oropharynx moist Neck: supple Effort: normal Ascultation: Bilateral: clear Cardiovascular: regular rate and rhythm (no mrg) Gastrointestinal: normoactive bowel sounds, soft, non-tender, non-distended Integumentary: normal Extremities: no cyanosis, no edema, pink and warm Neurologic: non-focal exam, pupils equal and round, CN II-XII normal, other ( mildly confused) Psychiatric: mood appropriate, affect normal CBC and BMP: 12/25/16 03:45 12/25/16 03:45 Abnormal lab findings: Abnormal Labs 12/24/16 12/24/16 12/24/16 00:01 00:01 00:46 MCH Potassium Chloride Carbon Dioxide 17 L Glucose 171 H POC Glucose 127 H Hemoglobin A1c Calcium Phosphorus 2.0 L 12/24/16 12/24/16 12/24/16 02:40 06:29 07:28 MCH Potassium Chloride 108.3 H Carbon Dioxide 17 L Glucose POC Glucose 141 H 192 H Hemoglobin A1c Calcium Phosphorus 12/24/16 12/24/16 12/24/16 08:10 08:18 08:56 MCH Potassium Chloride 108.0 H Carbon Dioxide 17 L Glucose 183 H POC Glucose 200 H 165 H Hemoglobin A1c Calcium Phosphorus 12/24/16 12/24/16 12/24/16 09:53 13:13 13:34 MCH Potassium Chloride 110.1 H Carbon Dioxide 16 L Glucose 122 H POC Glucose 124 H 115 H Hemoglobin A1c Calcium Phosphorus 12/24/16 12/24/16 12/24/16 14:00 15:03 15:15 MCH Potassium Chloride Carbon Dioxide 17 L Glucose 145 H POC Glucose 143 H 150 H Hemoglobin A1c Calcium Phosphorus 12/24/16 12/24/16 12/24/16 15:53 17:00 18:02 MCH Potassium Chloride Carbon Dioxide Glucose POC Glucose 149 H 136 H 115 H Hemoglobin A1c Calcium Phosphorus 12/24/16 12/24/16 12/24/16 18:41 18:41 18:56 MCH Potassium 3.3 L Chloride Carbon Dioxide 19 L Glucose POC Glucose 68 L Hemoglobin A1c 12.5 H Calcium Phosphorus 12/24/16 12/24/16 12/24/16 19:10 20:21 20:53 MCH Potassium Chloride Carbon Dioxide Glucose POC Glucose 69 L 127 H 151 H Hemoglobin A1c Calcium Phosphorus 12/24/16 12/24/16 12/24/16 22:07 23:08 23:59 MCH Potassium Chloride Carbon Dioxide Glucose POC Glucose 181 H 177 H 150 H Hemoglobin A1c Calcium Phosphorus 12/25/16 12/25/16 12/25/16 00:42 01:40 03:12 MCH Potassium 3.3 L Chloride 110.8 H Carbon Dioxide 15 L Glucose 125 H POC Glucose 122 H 123 H Hemoglobin A1c Calcium 8.0 L Phosphorus 12/25/16 12/25/16 12/25/16 03:45 03:45 04:21 MCH 27 L Potassium 3.5 L Chloride 110.0 H Carbon Dioxide 18 L Glucose 116 H POC Glucose 118 H Hemoglobin A1c Calcium 8.1 L Phosphorus 12/25/16 12/25/16 12/25/16 05:24 06:38 11:42 MCH Potassium Chloride Carbon Dioxide Glucose POC Glucose 141 H 123 H 231 H Hemoglobin A1c Calcium Phosphorus Chest x-ray: report reviewed, image reviewed
--- NOTE | 2016-12-25 15:09 | Progress Note ---
Assessment and Plan Assessment and plan: DKA - Treated according to DKA protocol - Gap is closed - Patient started on long-acting insulin - Transferred to the floor - Patient's hemoglobin A1c is 12.5 and she needed to be on insulin as an outpatient Dementia/ delirium/ metabolic encephalopathy - Patient isn't agitated - She is oriented only to self - I don't know her baseline Hypertension - Controlled Prophylaxis Lovenox Disposition Will be discharged when stable History Interval history: Patient was seen and evaluated this morning, patient is alert but oriented only to self. Hospitalist Physical - Physical exam Narrative exam: Not in cardiopulmonary distress. The patient appeared well nourished and normally developed. Vital signs as documented. Head exam is unremarkable. No scleral icterus . Neck is without jugular venous distension, thyromegaly, or carotid bruits. Lungs are clear to auscultation. Cardiac exam reveals regular rate and Rhythm. First and second heart sounds normal. No murmurs, rubs or gallops. Abdominal exam reveals normal bowel sounds, no masses, no organomegaly and no aortic enlargement. Extremities are nonedematous and both femoral and pedal pulses are normal. 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 - Constitutional Vitals: Temp Pulse Resp BP Pulse Ox 98.4 F 89 18 143/77 100 12/25/16 00:47 12/25/16 12:50 12/25/16 12:00 12/25/16 12:50 12/25/16 08:00 Results - Labs CBC & Chem 7: 12/25/16 03:45 12/25/16 03:45 Labs: Laboratory Last Values WBC 7.2 K/mm3 (4.5-11.0) 12/25/16 03:45 RBC 4.22 M/mm3 (3.65-5.03) 12/25/16 03:45 Hgb 11.3 gm/dl (10.1-14.3) 12/25/16 03:45 Hct 35.9 % (30.3-42.9) 12/25/16 03:45 MCV 85 fl (79-97) 12/25/16 03:45 MCH 27 pg (28-32) L 12/25/16 03:45 MCHC 31 % (30-34) 12/25/16 03:45 RDW 14.1 % (13.2-15.2) 12/25/16 03:45 Plt Count 184 K/mm3 (140-440) 12/25/16 03:45 Lymph % (Auto) 33.9 % (13.4-35.0) 12/23/16 20:15 [place] % (Auto) 6.6 % (0.0-7.3) 12/23/16 20:15 Eos % (Auto) 0.2 % (0.0-4.3) 12/23/16 20:15 Baso % (Auto) 0.7 % (0.0-1.8) 12/23/16 20:15 Lymph # 3.3 K/mm3 (1.2-5.4) 12/23/16 20:15 [place] # 0.7 K/mm3 (0.0-0.8) 12/23/16 20:15 Eos # 0.0 K/mm3 (0.0-0.4) 12/23/16 20:15 Baso # 0.1 K/mm3 (0.0-0.1) 12/23/16 20:15 Seg Neutrophils % 58.6 % (40.0-70.0) 12/23/16 20:15 Seg Neutrophils # 5.8 K/mm3 (1.8-7.7) 12/23/16 20:15 VBG pH 7.371 (7.320-7.420) 12/23/16 20:22 Sodium 140 mmol/L (137-145) 12/25/16 03:45 Potassium 3.5 mmol/L (3.6-5.0) L 12/25/16 03:45 Chloride 110.0 mmol/L (98-107) H 12/25/16 03:45 Carbon Dioxide 18 mmol/L (22-30) L 12/25/16 03:45 Anion Gap 16 mmol/L 12/25/16 03:45 BUN 9 mg/dL (7-17) 12/25/16 03:45 Creatinine 0.8 mg/dL (0.7-1.2) 12/25/16 03:45 Estimated GFR > 60 ml/min 12/25/16 03:45 BUN/Creatinine Ratio 11.25 % 12/25/16 03:45 Glucose 116 mg/dL (65-100) H 12/25/16 03:45 POC Glucose 231 (70-105) H 12/25/16 11:42 Hemoglobin A1c 12.5 % (4-6) H 12/24/16 18:41 Calcium 8.1 mg/dL (8.4-10.2) L 12/25/16 03:45 Phosphorus 2.0 mg/dL (2.5-4.5) L 12/24/16 00:01 Magnesium 2.2 mg/dL (1.7-2.3) 12/24/16 00:01 Total Bilirubin 0.6 mg/dL (0.1-1.2) 12/23/16 20:15 AST 26 units/L (5-40) 12/23/16 20:15 ALT 20 units/L (7-56) 12/23/16 20:15 Alkaline Phosphatase 127 units/L (35-129) 12/23/16 20:15 Troponin T < 0.010 ng/mL (0.00-0.029) 12/23/16 20:15 Total Protein 8.2 g/dL (6.3-8.2) 12/23/16 20:15 Albumin 4.5 g/dL (3.9-5) 12/23/16 20:15 Albumin/Globulin Ratio 1.2 % 12/23/16 20:15 Urine Color Straw (Yellow) 12/23/16 22:27 Urine Turbidity Clear (Clear) 12/23/16 22:27 Urine pH 5.0 (5.0-7.0) 12/23/16 22:27 Ur Specific [place] 1.030 (1.003-1.030) 12/23/16 22:27 Urine Protein 30 mg/dl mg/dL (Negative) 12/23/16 22:27 Urine Glucose (UA) >=500 mg/dL (Negative) 12/23/16 22:27 Urine Ketones 80 mg/dL (Negative) 12/23/16 22:27 Urine Blood Mod (Negative) 12/23/16 22: Urine Nitrite Neg (Negative) 12/23/16 22:27 Urine Bilirubin Neg (Negative) 12/23/16 22:27 Urine Urobilinogen < 2.0 mg/dL (<2.0) 12/23/16 22:27 Ur Leukocyte Esterase Neg (Negative) 12/23/16 22:27 Urine WBC (Auto) 2.0 /HPF (0.0-6.0) 12/23/16 22:27 Urine RBC (Auto) 5.0 /HPF (0.0-6.0) 12/23/16 22:27 U Epithel Cells (Auto) 1.0 /HPF (0-13.0) 12/23/16 22:27 Urine Mucus Few /HPF 12/23/16 22:27 Ketones 41.9 mg/dL (0.2-2.8) H 12/23/16 20:22 Closed
[2016-12-26 05:17] LABS: Basophils % (Auto) 0.4 % (0.0-1.8); Eosinophils % (Auto) 2.7 % (0.0-4.3); Hematocrit 38.1 % (30.3-42.9); Hemoglobin 12.2 gm/dl (10.1-14.3); Mean Corpuscular HGB Conc 32 % (30-34); Mean Corpuscular Hemoglobin 27 pg (28-32); Mean Corpuscular Volume 85 fl (79-97); Platelet Count 192 K/mm3 (140-440); Red Blood Count 4.46 M/mm3 (3.65-5.03); Red Cell Distribution Width 14.4 % (13.2-15.2)
[2016-12-26 05:19] LABS: Anion Gap 20 mmol/L; BUN/Creatinine Ratio 7.77; Blood Urea Nitrogen 7 mg/dL (7-17); Carbon Dioxide 21 mmol/L (22-30); Chloride 103.8 mmol/L (98-107); Glucose 117 mg/dL (65-100); Potassium 3.6 mmol/L (3.6-5.0); Sodium 141 mmol/L (137-145)
[2016-12-26] MEDS: NOVOLOG SUB-Q SCH ×4 (08:27→22:37)
[2016-12-26] MEDS: LOVENOX SUB-Q SCH (11:16)
[2016-12-26] MEDS: NORVASC PO SCH (11:17)
[2016-12-26] MEDS: BABY ASPIRIN PO SCH (11:17)
[2016-12-26] MEDS: NACL 0.45% 1000 ML 1,000 ML IV SCH ×2 (11:32→22:38)
--- NOTE | 2016-12-26 15:29 | Progress Note ---
Assessment and Plan Assessment and plan: DKA - Treated according to DKA protocol - Patient started on long-acting insulin - Transferred to geriatric unit - Patient's hemoglobin A1c is 12.5 and she needed to be on insulin as an outpatient Dementia/ delirium/ metabolic encephalopathy - Patient isn't agitated - She is oriented only to self - I don't know her baseline Hypertension - Controlled Prophylaxis Lovenox Disposition Will be discharged when stable History Interval history: Patient was seen and evaluated this morning, patient is alert but oriented only to self. Hospitalist Physical - Physical exam Narrative exam: Not in cardiopulmonary distress. The patient appeared well nourished and normally developed. Vital signs as documented. Head exam is unremarkable. No scleral icterus . Neck is without jugular venous distension, thyromegaly, or carotid bruits. Lungs are clear to auscultation. Cardiac exam reveals regular rate and Rhythm. First and second heart sounds normal. No murmurs, rubs or gallops. Abdominal exam reveals normal bowel sounds, no masses, no organomegaly and no aortic enlargement. Extremities are nonedematous and both femoral and pedal pulses are normal. 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 - Constitutional Vitals: Temp Pulse Resp BP Pulse Ox 98 F 79 18 119/59 97 12/26/16 10:00 12/26/16 11:17 12/26/16 10:00 12/26/16 11:17 12/25/16 23:04 Results - Labs CBC & Chem 7: 12/26/16 04:33 12/26/16 04:33 Labs: Laboratory Last Values WBC 6.0 K/mm3 (4.5-11.0) 12/26/16 04:33 RBC 4.46 M/mm3 (3.65-5.03) 12/26/16 04:33 Hgb 12.2 gm/dl (10.1-14.3) 12/26/16 04:33 Hct 38.1 % (30.3-42.9) 12/26/16 04:33 MCV 85 fl (79-97) 12/26/16 04:33 MCH 27 pg (28-32) L 12/26/16 04:33 MCHC 32 % (30-34) 12/26/16 04:33 RDW 14.4 % (13.2-15.2) 12/26/16 04:33 Plt Count 192 K/mm3 (140-440) 12/26/16 04:33 Lymph % (Auto) 48.6 % (13.4-35.0) H 12/26/16 04:33 [place] % (Auto) 8.4 % (0.0-7.3) H 12/26/16 04:33 Eos % (Auto) 2.7 % (0.0-4.3) 12/26/16 04:33 Baso % (Auto) 0.4 % (0.0-1.8) 12/26/16 04:33 Lymph # 2.9 K/mm3 (1.2-5.4) 12/26/16 04:33 [place] # 0.5 K/mm3 (0.0-0.8) 12/26/16 04:33 Eos # 0.2 K/mm3 (0.0-0.4) 12/26/16 04:33 Baso # 0.0 K/mm3 (0.0-0.1) 12/26/16 04:33 Seg Neutrophils % 39.9 % (40.0-70.0) L 12/26/16 04:33 Seg Neutrophils # 2.4 K/mm3 (1.8-7.7) 12/26/16 04:33 VBG pH 7.371 (7.320-7.420) 12/23/16 20:22 Sodium 141 mmol/L (137-145) 12/26/16 04:33 Potassium 3.6 mmol/L (3.6-5.0) 12/26/16 04:33 Chloride 103.8 mmol/L (98-107) 12/26/16 04:33 Carbon Dioxide 21 mmol/L (22-30) L 12/26/16 04:33 Anion Gap 20 mmol/L 12/26/16 04:33 BUN 7 mg/dL (7-17) 12/26/16 04:33 Creatinine 0.9 mg/dL (0.7-1.2) 12/26/16 04:33 Estimated GFR > 60 ml/min 12/26/16 04:33 BUN/Creatinine Ratio 7.77 % 12/26/16 04:33 Glucose 117 mg/dL (65-100) H 12/26/16 04:33 POC Glucose 277 (70-105) H 12/26/16 11:26 Hemoglobin A1c 12.5 % (4-6) H 12/24/16 18:41 Calcium 9.0 mg/dL (8.4-10.2) 12/26/16 04:33 Phosphorus 2.0 mg/dL (2.5-4.5) L 12/24/16 00:01 Magnesium 2.2 mg/dL (1.7-2.3) 12/24/16 00:01 Total Bilirubin 0.6 mg/dL (0.1-1.2) 12/23/16 20:15 AST 26 units/L (5-40) 12/23/16 20:15 ALT 20 units/L (7-56) 12/23/16 20:15 Alkaline Phosphatase 127 units/L (35-129) 12/23/16 20:15 Troponin T < 0.010 ng/mL (0.00-0.029) 12/23/16 20:15 Total Protein 8.2 g/dL (6.3-8.2) 12/23/16 20:15 Albumin 4.5 g/dL (3.9-5) 12/23/16 20:15 Albumin/Globulin Ratio 1.2 % 12/23/16 20:15 Urine Color Straw (Yellow) 12/23/16 22:27 Urine Turbidity Clear (Clear) 12/23/16 22:27 Urine pH 5.0 (5.0-7.0) 12/23/16 22:27 Ur Specific [place] 1.030 (1.003-1.030) 12/23/16 22:27 Urine Protein 30 mg/dl mg/dL (Negative) 12/23/16 22:27 Urine Glucose (UA) >=500 mg/dL (Negative) 12/23/16 22:27 Urine Ketones 80 mg/dL (Negative) 12/23/16 22:27 Urine Blood Mod (Negative) 12/23/16 22:27 Urine Nitrite Neg (Negative) 12/23/16 22: Urine Bilirubin Neg (Negative) 12/23/16 22:27 Urine Urobilinogen < 2.0 mg/dL (<2.0) 12/23/16 22:27 Ur Leukocyte Esterase Neg (Negative) 12/23/16 22:27 Urine WBC (Auto) 2.0 /HPF (0.0-6.0) 12/23/16 22:27 Urine RBC (Auto) 5.0 /HPF (0.0-6.0) 12/23/16 22:27 U Epithel Cells (Auto) 1.0 /HPF (0-13.0) 12/23/16 22:27 Urine Mucus Few /HPF 12/23/16 22:27 Ketones 41.9 mg/dL (0.2-2.8) H 12/23/16 20:22
[2016-12-26 17:54] LABS: Anion Gap 18 mmol/L; Blood Urea Nitrogen 9 mg/dL (7-17); Calcium 8.4 mg/dL (8.4-10.2); Carbon Dioxide 18 mmol/L (22-30); Chloride 103.7 mmol/L (98-107); Glucose 275 mg/dL (65-100); Potassium 3.4 mmol/L (3.6-5.0); Sodium 136 mmol/L (137-145)
[2016-12-26] MEDS ORDERED: K-DUR PO ONE (20:00)
[2016-12-27 06:22] LABS: Anion Gap 18 mmol/L; BUN/Creatinine Ratio 6.66; Blood Urea Nitrogen 6 mg/dL (7-17); Calcium 8.7 mg/dL (8.4-10.2); Carbon Dioxide 23 mmol/L (22-30); Chloride 105.9 mmol/L (98-107); Glucose 124 mg/dL (65-100); Potassium 3.7 mmol/L (3.6-5.0); Sodium 143 mmol/L (137-145)
[2016-12-27] MEDS: NOVOLOG SUB-Q SCH ×4 (08:16→23:09)
[2016-12-27] MEDS: NORVASC PO SCH (09:56)
[2016-12-27] MEDS: BABY ASPIRIN PO SCH (09:56)
[2016-12-27] MEDS: LOVENOX SUB-Q SCH (09:57)
[2016-12-27] MEDS: NACL 0.45% 1000 ML 1,000 ML IV SCH (10:14)
--- NOTE | 2016-12-27 16:55 | Progress Note ---
Assessment and Plan Assessment and plan: DKA - Treated according to DKA protocol - Patient started on long-acting insulin - Transferred to geriatric unit - Patient's hemoglobin A1c is 12.5 and she needed to be on insulin as an outpatient Dementia/ delirium/ metabolic encephalopathy - Patient isn't agitated - She is oriented only to self - I don't know her baseline Hypertension - Controlled Prophylaxis Lovenox Disposition - Pending [facility] placement History Interval history: Patient was seen and evaluated this morning, patient is alert but oriented only to self. Hospitalist Physical - Physical exam Narrative exam: Not in cardiopulmonary distress. The patient appeared well nourished and normally developed. Vital signs as documented. Head exam is unremarkable. No scleral icterus . Neck is without jugular venous distension, thyromegaly, or carotid bruits. Lungs are clear to auscultation. Cardiac exam reveals regular rate and Rhythm. First and second heart sounds normal. No murmurs, rubs or gallops. Abdominal exam reveals normal bowel sounds, no masses, no organomegaly and no aortic enlargement. Extremities are nonedematous and both femoral and pedal pulses are normal. 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 - Constitutional Vitals: Temp Pulse Resp BP Pulse Ox 98.3 F 82 22 120/64 99 12/27/16 08:00 12/27/16 09:56 12/27/16 08:00 12/27/16 09:56 12/27/16 08:00 Results - Labs CBC & Chem 7: 12/26/16 04:33 12/27/16 05:45 Labs: Laboratory Last Values WBC 6.0 K/mm3 (4.5-11.0) 12/26/16 04:33 RBC 4.46 M/mm3 (3.65-5.03) 12/26/16 04:33 Hgb 12.2 gm/dl (10.1-14.3) 12/26/16 04:33 Hct 38.1 % (30.3-42.9) 12/26/16 04:33 MCV 85 fl (79-97) 12/26/16 04:33 MCH 27 pg (28-32) L 12/26/16 04:33 MCHC 32 % (30-34) 12/26/16 04:33 RDW 14.4 % (13.2-15.2) 12/26/16 04:33 Plt Count 192 K/mm3 (140-440) 12/26/16 04:33 Lymph % (Auto) 48.6 % (13.4-35.0) H 12/26/16 04:33 [place] % (Auto) 8.4 % (0.0-7.3) H 12/26/16 04:33 Eos % (Auto) 2.7 % (0.0-4.3) 12/26/16 04:33 Baso % (Auto) 0.4 % (0.0-1.8) 12/26/16 04:33 Lymph # 2.9 K/mm3 (1.2-5.4) 12/26/16 04:33 [place] # 0.5 K/mm3 (0.0-0.8) 12/26/16 04:33 Eos # 0.2 K/mm3 (0.0-0.4) 12/26/16 04:33 Baso # 0.0 K/mm3 (0.0-0.1) 12/26/16 04:33 Seg Neutrophils % 39.9 % (40.0-70.0) L 12/26/16 04:33 Seg Neutrophils # 2.4 K/mm3 (1.8-7.7) 12/26/16 04:33 VBG pH 7.371 (7.320-7.420) 12/23/16 20:22 Sodium 143 mmol/L (137-145) D 12/27/16 05:45 Potassium 3.7 mmol/L (3.6-5.0) 12/27/16 05:45 Chloride 105.9 mmol/L (98-107) 12/27/16 05:45 Carbon Dioxide 23 mmol/L (22-30) 12/27/16 05:45 Anion Gap 18 mmol/L 12/27/16 05:45 BUN 6 mg/dL (7-17) L 12/27/16 05:45 Creatinine 0.9 mg/dL (0.7-1.2) 12/27/16 05:45 Estimated GFR > 60 ml/min 12/27/16 05:45 BUN/Creatinine Ratio 6.66 % 12/27/16 05:45 Glucose 124 mg/dL (65-100) H 12/27/16 05:45 POC Glucose 97 (70-105) 12/27/16 16:34 Hemoglobin A1c 12.5 % (4-6) H 12/24/16 18:41 Calcium 8.7 mg/dL (8.4-10.2) 12/27/16 05:45 Phosphorus 2.0 mg/dL (2.5-4.5) L 12/24/16 00:01 Magnesium 2.2 mg/dL (1.7-2.3) 12/24/16 00:01 Total Bilirubin 0.6 mg/dL (0.1-1.2) 12/23/16 20:15 AST 26 units/L (5-40) 12/23/16 20:15 ALT 20 units/L (7-56) 12/23/16 20:15 Alkaline Phosphatase 127 units/L (35-129) 12/23/16 20:15 Troponin T < 0.010 ng/mL (0.00-0.029) 12/23/16 20:15 Total Protein 8.2 g/dL (6.3-8.2) 12/23/16 20:15 Albumin 4.5 g/dL (3.9-5) 12/23/16 20:15 Albumin/Globulin Ratio 1.2 % 12/23/16 20:15 Urine Color Straw (Yellow) 12/23/16 22:27 Urine Turbidity Clear (Clear) 12/23/16 22:27 Urine pH 5.0 (5.0-7.0) 12/23/16 22:27 Ur Specific [place] 1.030 (1.003-1.030) 12/23/16 22:27 Urine Protein 30 mg/dl mg/dL (Negative) 12/23/16 22:27 Urine Glucose (UA) >=500 mg/dL (Negative) 12/23/16 22:27 Urine Ketones 80 mg/dL (Negative) 12/23/16 22:27 Urine Blood Mod (Negative) 12/23/16 22: Urine Nitrite Neg (Negative) 12/23/16 22: Urine Bilirubin Neg (Negative) 12/23/16 22: Urine Urobilinogen < 2.0 mg/dL (<2.0) 12/23/16 22:27 Ur Leukocyte Esterase Neg (Negative) 12/23/16 22:27 Urine WBC (Auto) 2.0 /HPF (0.0-6.0) 12/23/16 22:27 Urine RBC (Auto) 5.0 /HPF (0.0-6.0) 12/23/16 22:27 U Epithel Cells (Auto) 1.0 /HPF (0-13.0) 12/23/16 22:27 Urine Mucus Few /HPF 12/23/16 22:27 Ketones 41.9 mg/dL (0.2-2.8) H 12/23/16 20:22
[2016-12-28] MEDS: NACL 0.45% 1000 ML 1,000 ML IV SCH ×2 (01:54→17:26)
[2016-12-28 04:37] LABS: Basophils % (Auto) 0.4 % (0.0-1.8); Eosinophils % (Auto) 2.7 % (0.0-4.3); Hematocrit 33.4 % (30.3-42.9); Hemoglobin 10.5 gm/dl (10.1-14.3); Mean Corpuscular HGB Conc 32 % (30-34); Mean Corpuscular Hemoglobin 27 pg (28-32); Mean Corpuscular Volume 85 fl (79-97); Platelet Count 195 K/mm3 (140-440); Red Blood Count 3.91 M/mm3 (3.65-5.03); Red Cell Distribution Width 14.5 % (13.2-15.2); White Blood Count 6.3 K/mm3 (4.5-11.0)
[2016-12-28 04:53] LABS: Anion Gap 15 mmol/L; BUN/Creatinine Ratio 8.88; Blood Urea Nitrogen 8 mg/dL (7-17); Calcium 8.3 mg/dL (8.4-10.2); Carbon Dioxide 23 mmol/L (22-30); Chloride 103.3 mmol/L (98-107); Glucose 218 mg/dL (65-100); Potassium 3.8 mmol/L (3.6-5.0); Sodium 137 mmol/L (137-145)
[2016-12-28] MEDS: NOVOLOG SUB-Q SCH ×4 (07:59→22:40)
--- NOTE | 2016-12-28 09:16 | Discharge Summary ---
Providers - Providers Date of Admission: 12/23/16 23:45 Date of discharge: 12/28/16 Attending physician: ASAF GODFREY MD 12/27/16 13:27 Physical Therapy Evaluation and Treat [CONS] Routine Comment: Reason For Exam: PT FOR D/C TO SNF IN THE AM, PT EVAL IMPORTANT Primary care physician: IRMA RODRIGUEZ MD Hospitalization Condition: Stable Disposition: DC/[place] SNF [facility] Time spent for discharge: 31 minutes - Discharge Diagnoses (1) Delirium Status: Acute (2) Diabetic ketoacidosis Status: Acute Qualifiers: Diabetes mellitus type: type 2 Diabetes mellitus complication detail: without coma Qualified Code(s): E13.10 - Other specified diabetes mellitus with ketoacidosis without coma (3) Altered mental status Status: Acute Qualifiers: Altered mental status type: unspecified Coma depth: C Coma timing: C Qualified Code(s): R41.82 - Altered mental status, unspecified (4) Hypertension Status: Chronic Qualifiers: Hypertension type: H Core Measure Documentation - Palliative Care Palliative Care/ Comfort Measures: Not Applicable - Core Measures Any of the following diagnoses?: none Exam - Physical Exam Narrative exam: Not in cardiopulmonary distress. The patient appeared well nourished and normally developed. Vital signs as documented. Head exam is unremarkable. No scleral icterus . Neck is without jugular venous distension, thyromegaly, or carotid bruits. Lungs are clear to auscultation. Cardiac exam reveals regular rate and Rhythm. First and second heart sounds normal. No murmurs, rubs or gallops. Abdominal exam reveals normal bowel sounds, no masses, no organomegaly and no aortic enlargement. Extremities are nonedematous and both femoral and pedal pulses are normal. [employer]: Alert and oriented 1. - Constitutional Vitals: Temp Pulse Resp BP Pulse Ox 98.8 F 65 18 130/70 93 12/27/16 20:14 12/27/16 20:14 12/27/16 20:14 12/27/16 20:14 12/27/16 20:14 Plan Activity: advance as tolerated Weight Bearing Status: Full Weight Bearing Diet: low cholesterol, low salt, diabetic Follow up with: PRIMARY CARE, [Primary Care Provider] - 3-5 Days Prescriptions: Insulin NPH/Regular [NovoLIN 70/30] 15 unit SUB-Q QPM #1 vial Insulin NPH/Regular [NovoLIN 70/30] 35 unit SUB-Q QAM #1 vial
[2016-12-28] MEDS: BABY ASPIRIN PO SCH (11:34)
[2016-12-28] MEDS: LOVENOX SUB-Q SCH (11:34)
[2016-12-28] MEDS: NORVASC PO SCH (11:39)
[2016-12-29] MEDS: NACL 0.45% 1000 ML 1,000 ML IV SCH (04:13)
--- NOTE | 2016-12-29 09:04 | Progress Note ---
Assessment and Plan Assessment and plan: DKA - Treated according to DKA protocol - Patient started on long-acting insulin - Transferred to geriatric unit - Patient's hemoglobin A1c is 12.5 and she needed to be on insulin as an outpatient Dementia/ delirium/ metabolic encephalopathy - Patient isn't agitated - She is oriented only to self - I don't know her baseline Hypertension - Controlled Prophylaxis Lovenox Disposition - Pending prison placement - Patient Problems (1) Delirium Current Visit: Yes Status: Acute (2) Diabetic ketoacidosis Current Visit: Yes Status: Acute Qualifiers: Diabetes mellitus type: type 2 Diabetes mellitus complication detail: without coma Qualified Code(s): E13.10 - Other specified diabetes mellitus with ketoacidosis without coma (3) Altered mental status Current Visit: No Status: Acute Qualifiers: Altered mental status type: unspecified Coma depth: C Coma timing: C Qualified Code(s): R41.82 - Altered mental status, unspecified (4) Hypertension Current Visit: No Status: Chronic Qualifiers: Hypertension type: H History Interval history: Patient was seen and evaluated this morning, patient is alert but oriented only to self. Hospitalist Physical - Physical exam Narrative exam: Not in cardiopulmonary distress. The patient appeared well nourished and normally developed. Vital signs as documented. Head exam is unremarkable. No scleral icterus . Neck is without jugular venous distension, thyromegaly, or carotid bruits. Lungs are clear to auscultation. Cardiac exam reveals regular rate and Rhythm. First and second heart sounds normal. No murmurs, rubs or gallops. Abdominal exam reveals normal bowel sounds, no masses, no organomegaly and no aortic enlargement. Extremities are nonedematous and both femoral and pedal pulses are normal. NEWSSTAND VENDOR: Alert and oriented 1. - Constitutional Vitals: Temp Pulse Resp BP Pulse Ox 97.8 F 61 20 124/73 99 12/28/16 20:45 12/28/16 20:45 12/28/16 20:45 12/28/16 20:45 12/28/16 20:45 Results - Labs CBC & Chem 7: 12/28/16 04:01 12/28/16 04:01 Labs: Laboratory Last Values WBC 6.3 K/mm3 (4.5-11.0) 12/28/16 04:01 RBC 3.91 M/mm3 (3.65-5.03) 12/28/16 04:01 Hgb 10.5 gm/dl (10.1-14.3) 12/28/16 04:01 Hct 33.4 % (30.3-42.9) 12/28/16 04:01 MCV 85 fl (79-97) 12/28/16 04:01 MCH 27 pg (28-32) L 12/28/16 04:01 MCHC 32 % (30-34) 12/28/16 04:01 RDW 14.5 % (13.2-15.2) 12/28/16 04:01 Plt Count 195 K/mm3 (140-440) 12/28/16 04:01 Lymph % (Auto) 46.5 % (13.4-35.0) H 12/28/16 04:01 [place] % (Auto) 9.1 % (0.0-7.3) H 12/28/16 04:01 Eos % (Auto) 2.7 % (0.0-4.3) 12/28/16 04:01 Baso % (Auto) 0.4 % (0.0-1.8) 12/28/16 04:01 Lymph # 2.9 K/mm3 (1.2-5.4) 12/28/16 04:01 [place] # 0.6 K/mm3 (0.0-0.8) 12/28/16 04:01 Eos # 0.2 K/mm3 (0.0-0.4) 12/28/16 04:01 Baso # 0.0 K/mm3 (0.0-0.1) 12/28/16 04:01 Seg Neutrophils % 41.3 % (40.0-70.0) 12/28/16 04:01 Seg Neutrophils # 2.6 K/mm3 (1.8-7.7) 12/28/16 04:01 VBG pH 7.371 (7.320-7.420) 12/23/16 20:22 Sodium 137 mmol/L (137-145) 12/28/16 04:01 Potassium 3.8 mmol/L (3.6-5.0) 12/28/16 04:01 Chloride 103.3 mmol/L (98-107) 12/28/16 04:01 Carbon Dioxide 23 mmol/L (22-30) 12/28/16 04:01 Anion Gap 15 mmol/L 12/28/16 04:01 BUN 8 mg/dL (7-17) 12/28/16 04:01 Creatinine 0.9 mg/dL (0.7-1.2) 12/28/16 04:01 Estimated GFR > 60 ml/min 12/28/16 04:01 BUN/Creatinine Ratio 8.88 % 12/28/16 04:01 Glucose 218 mg/dL (65-100) H 12/28/16 04:01 POC Glucose 232 (70-105) H 12/28/16 16:44 Hemoglobin A1c 12.5 % (4-6) H 12/24/16 18:41 Calcium 8.3 mg/dL (8.4-10.2) L 12/28/16 04:01 Phosphorus 2.0 mg/dL (2.5-4.5) L 12/24/16 00:01 Magnesium 2.2 mg/dL (1.7-2.3) 12/24/16 00:01 Total Bilirubin 0.6 mg/dL (0.1-1.2) 12/23/16 20:15 AST 26 units/L (5-40) 12/23/16 20:15 ALT 20 units/L (7-56) 12/23/16 20:15 Alkaline Phosphatase 127 units/L (35-129) 12/23/16 20:15 Troponin T < 0.010 ng/mL (0.00-0.029) 12/23/16 20:15 Total Protein 8.2 g/dL (6.3-8.2) 12/23/16 20:15 Albumin 4.5 g/dL (3.9-5) 12/23/16 20:15 Albumin/Globulin Ratio 1.2 % 12/23/16 20:15 Urine Color Straw (Yellow) 12/23/16 22:27 Urine Turbidity Clear (Clear) 12/23/16 22: Urine pH 5.0 (5.0-7.0) 12/23/16 22:27 Ur Specific [place] 1.030 (1.003-1.030) 12/23/16 22:27 Urine Protein 30 mg/dl mg/dL (Negative) 12/23/16 22:27 Urine Glucose (UA) >=500 mg/dL (Negative) 12/23/16 22: Urine Ketones 80 mg/dL (Negative) 12/23/16 22: Urine Blood Mod (Negative) 12/23/16 22: Urine Nitrite Neg (Negative) 12/23/16 22: Urine Bilirubin Neg (Negative) 12/23/16 22: Urine Urobilinogen < 2.0 mg/dL (<2.0) 12/23/16 22: Ur Leukocyte Esterase Neg (Negative) 12/23/16 22: Urine WBC (Auto) 2.0 /HPF (0.0-6.0) 12/23/16 22: Urine RBC (Auto) 5.0 /HPF (0.0-6.0) 12/23/16 22: U Epithel Cells (Auto) 1.0 /HPF (0-13.0) 12/23/16 22: Urine Mucus Few /HPF 12/23/16 22: Ketones 41.9 mg/dL (0.2-2.8) H 12/23/16 20:22
[2016-12-29] MEDS: NOVOLOG SUB-Q SCH ×4 (09:05→22:06)
[2016-12-29] MEDS: LOVENOX SUB-Q SCH (10:44)
[2016-12-29] MEDS: BABY ASPIRIN PO SCH (10:45)
[2016-12-29] MEDS: NORVASC PO SCH (10:52)
--- NOTE | 2016-12-29 16:23 | Progress Note ---
Assessment and Plan Assessment and plan: DKA - Treated according to DKA protocol - Patient started on long-acting insulin - Transferred to geriatric unit - Patient's hemoglobin A1c is 12.5 and she needed to be on insulin as an outpatient Dementia/ delirium/ metabolic encephalopathy - Patient isn't agitated - She is oriented only to self - I don't know her baseline Hypertension - Controlled Prophylaxis Lovenox Disposition - Pending long-term placement - Patient Problems (1) Delirium Current Visit: Yes Status: Acute (2) Diabetic ketoacidosis Current Visit: Yes Status: Acute Qualifiers: Diabetes mellitus type: type 2 Diabetes mellitus complication detail: without coma Qualified Code(s): E13.10 - Other specified diabetes mellitus with ketoacidosis without coma (3) Altered mental status Current Visit: No Status: Acute Qualifiers: Altered mental status type: unspecified Coma depth: C Coma timing: C Qualified Code(s): R41.82 - Altered mental status, unspecified (4) Hypertension Current Visit: No Status: Chronic Qualifiers: Hypertension type: H History Interval history: Patient was seen and evaluated this morning, patient is alert but oriented only to self. Hospitalist Physical - Physical exam Narrative exam: Not in cardiopulmonary distress. The patient appeared well nourished and normally developed. Vital signs as documented. Head exam is unremarkable. No scleral icterus . Neck is without jugular venous distension, thyromegaly, or carotid bruits. Lungs are clear to auscultation. Cardiac exam reveals regular rate and Rhythm. First and second heart sounds normal. No murmurs, rubs or gallops. Abdominal exam reveals normal bowel sounds, no masses, no organomegaly and no aortic enlargement. Extremities are nonedematous and both femoral and pedal pulses are normal. REIMBURSEMENT DIRECTOR: Alert and oriented 1. - Constitutional Vitals: Temp Pulse Resp BP Pulse Ox 97.8 F 56 L 20 124/73 99 12/28/16 20:45 12/29/16 10:52 12/28/16 20:45 12/28/16 20:45 12/28/16 20:45 Results - Labs CBC & Chem 7: 12/28/16 04:01 12/28/16 04:01 Labs: Laboratory Last Values WBC 6.3 K/mm3 (4.5-11.0) 12/28/16 04:01 RBC 3.91 M/mm3 (3.65-5.03) 12/28/16 04:01 Hgb 10.5 gm/dl (10.1-14.3) 12/28/16 04:01 Hct 33.4 % (30.3-42.9) 12/28/16 04:01 MCV 85 fl (79-97) 12/28/16 04:01 MCH 27 pg (28-32) L 12/28/16 04:01 MCHC 32 % (30-34) 12/28/16 04:01 RDW 14.5 % (13.2-15.2) 12/28/16 04:01 Plt Count 195 K/mm3 (140-440) 12/28/16 04:01 Lymph % (Auto) 46.5 % (13.4-35.0) H 12/28/16 04:01 [place] % (Auto) 9.1 % (0.0-7.3) H 12/28/16 04:01 Eos % (Auto) 2.7 % (0.0-4.3) 12/28/16 04:01 Baso % (Auto) 0.4 % (0.0-1.8) 12/28/16 04:01 Lymph # 2.9 K/mm3 (1.2-5.4) 12/28/16 04:01 [place] # 0.6 K/mm3 (0.0-0.8) 12/28/16 04:01 Eos # 0.2 K/mm3 (0.0-0.4) 12/28/16 04:01 Baso # 0.0 K/mm3 (0.0-0.1) 12/28/16 04:01 Seg Neutrophils % 41.3 % (40.0-70.0) 12/28/16 04:01 Seg Neutrophils # 2.6 K/mm3 (1.8-7.7) 12/28/16 04:01 VBG pH 7.371 (7.320-7.420) 12/23/16 20:22 Sodium 137 mmol/L (137-145) 12/28/16 04:01 Potassium 3.8 mmol/L (3.6-5.0) 12/28/16 04:01 Chloride 103.3 mmol/L (98-107) 12/28/16 04:01 Carbon Dioxide 23 mmol/L (22-30) 12/28/16 04:01 Anion Gap 15 mmol/L 12/28/16 04:01 BUN 8 mg/dL (7-17) 12/28/16 04:01 Creatinine 0.9 mg/dL (0.7-1.2) 12/28/16 04:01 Estimated GFR > 60 ml/min 12/28/16 04:01 BUN/Creatinine Ratio 8.88 % 12/28/16 04:01 Glucose 218 mg/dL (65-100) H 12/28/16 04:01 POC Glucose 270 (70-105) H 12/28/16 22:35 Hemoglobin A1c 12.5 % (4-6) H 12/24/16 18:41 Calcium 8.3 mg/dL (8.4-10.2) L 12/28/16 04:01 Phosphorus 2.0 mg/dL (2.5-4.5) L 12/24/16 00:01 Magnesium 2.2 mg/dL (1.7-2.3) 12/24/16 00:01 Total Bilirubin 0.6 mg/dL (0.1-1.2) 12/23/16 20:15 AST 26 units/L (5-40) 12/23/16 20:15 ALT 20 units/L (7-56) 12/23/16 20:15 Alkaline Phosphatase 127 units/L (35-129) 12/23/16 20:15 Troponin T < 0.010 ng/mL (0.00-0.029) 12/23/16 20:15 Total Protein 8.2 g/dL (6.3-8.2) 12/23/16 20:15 Albumin 4.5 g/dL (3.9-5) 12/23/16 20:15 Albumin/Globulin Ratio 1.2 % 12/23/16 20:15 Urine Color Straw (Yellow) 12/23/16 22:27 Urine Turbidity Clear (Clear) 12/23/16 22:27 Urine pH 5.0 (5.0-7.0) 12/23/16 22:27 Ur Specific [place] 1.030 (1.003-1.030) 12/23/16 22:27 Urine Protein 30 mg/dl mg/dL (Negative) 12/23/16 22:27 Urine Glucose (UA) >=500 mg/dL (Negative) 12/23/16 22: Urine Ketones 80 mg/dL (Negative) 12/23/16 22: Urine Blood Mod (Negative) 12/23/16 22: Urine Nitrite Neg (Negative) 12/23/16 22: Urine Bilirubin Neg (Negative) 12/23/16 22: Urine Urobilinogen < 2.0 mg/dL (<2.0) 12/23/16 22: Ur Leukocyte Esterase Neg (Negative) 12/23/16 22: Urine WBC (Auto) 2.0 /HPF (0.0-6.0) 12/23/16 22: Urine RBC (Auto) 5.0 /HPF (0.0-6.0) 12/23/16 22: U Epithel Cells (Auto) 1.0 /HPF (0-13.0) 12/23/16 22: Urine Mucus Few /HPF 12/23/16 22: Ketones 41.9 mg/dL (0.2-2.8) H 12/23/16 20:22
--- NOTE | 2016-12-29 17:14 | Progress Note ---
Assessment and Plan - Patient Problems (1) Delirium Current Visit: Yes Status: Acute (2) Diabetic ketoacidosis Current Visit: Yes Status: Acute Qualifiers: Diabetes mellitus type: type 2 Diabetes mellitus complication detail: without coma Qualified Code(s): E13.10 - Other specified diabetes mellitus with ketoacidosis without coma Subjective Principal diagnosis: DKA Interval history: Doing well Objective Vital Signs - 12hr 12/29/16 10:52 Pulse Rate 56 L Constitutional: no acute distress, alert Eyes: non-icteric ENT: oropharynx moist Neck: supple Effort: normal Ascultation: Bilateral: clear Cardiovascular: regular rate and rhythm (no mrg) Gastrointestinal: normoactive bowel sounds, soft, non-tender, non-distended Integumentary: normal Extremities: no cyanosis, no edema, pink and warm Neurologic: non-focal exam, pupils equal and round, CN II-XII normal, other ( mildly confused) Psychiatric: mood appropriate, affect normal CBC and BMP: 12/28/16 04:01 12/28/16 04:01 Abnormal lab findings: Abnormal Labs 12/24/16 12/24/16 12/24/16 00:01 00:01 00:46 MCH Lymph % (Auto) [place] % (Auto) Seg Neutrophils % Sodium Potassium Chloride Carbon Dioxide 17 L BUN Glucose 171 H POC Glucose 127 H Hemoglobin A1c Calcium Phosphorus 2.0 L 12/24/16 12/24/16 12/24/16 02:40 06:29 07:28 MCH Lymph % (Auto) [place] % (Auto) Seg Neutrophils % Sodium Potassium Chloride 108.3 H Carbon Dioxide 17 L BUN Glucose POC Glucose 141 H 192 H Hemoglobin A1c Calcium Phosphorus 12/24/16 12/24/16 12/24/16 08:10 08:18 08:56 MCH Lymph % (Auto) [place] % (Auto) Seg Neutrophils % Sodium Potassium Chloride 108.0 H Carbon Dioxide 17 L BUN Glucose 183 H POC Glucose 200 H 165 H Hemoglobin A1c Calcium Phosphorus 12/24/16 12/24/16 12/24/16 09:53 13:13 13:34 MCH Lymph % (Auto) [place] % (Auto) Seg Neutrophils % Sodium Potassium Chloride 110.1 H Carbon Dioxide 16 L BUN Glucose 122 H POC Glucose 124 H 115 H Hemoglobin A1c Calcium Phosphorus 12/24/16 12/24/16 12/24/16 14:00 15:03 15:15 MCH Lymph % (Auto) [place] % (Auto) Seg Neutrophils % Sodium Potassium Chloride Carbon Dioxide 17 L BUN Glucose 145 H POC Glucose 143 H 150 H Hemoglobin A1c Calcium Phosphorus 12/24/16 12/24/16 12/24/16 15:53 17:00 18:02 MCH Lymph % (Auto) [place] % (Auto) Seg Neutrophils % Sodium Potassium Chloride Carbon Dioxide BUN Glucose POC Glucose 149 H 136 H 115 H Hemoglobin A1c Calcium Phosphorus 12/24/16 12/24/16 12/24/16 18:41 18:41 18:56 MCH Lymph % (Auto) [place] % (Auto) Seg Neutrophils % Sodium Potassium 3.3 L Chloride Carbon Dioxide 19 L BUN Glucose POC Glucose 68 L Hemoglobin A1c 12.5 H Calcium Phosphorus 12/24/16 12/24/16 12/24/16 19:10 20:21 20:53 MCH Lymph % (Auto) [place] % (Auto) Seg Neutrophils % Sodium Potassium Chloride Carbon Dioxide BUN Glucose POC Glucose 69 L 127 H 151 H Hemoglobin A1c Calcium Phosphorus 12/24/16 12/24/16 12/24/16 22:07 23:08 23:59 MCH Lymph % (Auto) [place] % (Auto) Seg Neutrophils % Sodium Potassium Chloride Carbon Dioxide BUN Glucose POC Glucose 181 H 177 H 150 H Hemoglobin A1c Calcium Phosphorus 12/25/16 12/25/16 12/25/16 00:42 01:40 03:12 MCH Lymph % (Auto) [place] % (Auto) Seg Neutrophils % Sodium Potassium 3.3 L Chloride 110.8 H Carbon Dioxide 15 L BUN Glucose 125 H POC Glucose 122 H 123 H Hemoglobin A1c Calcium 8.0 L Phosphorus 12/25/16 12/25/16 12/25/16 03:45 03:45 04:21 MCH 27 L Lymph % (Auto) [place] % (Auto) Seg Neutrophils % Sodium Potassium 3.5 L Chloride 110.0 H Carbon Dioxide 18 L BUN Glucose 116 H POC Glucose 118 H Hemoglobin A1c Calcium 8.1 L Phosphorus 12/25/16 12/25/16 12/25/16 05:24 06:38 11:42 MCH Lymph % (Auto) [place] % (Auto) Seg Neutrophils % Sodium Potassium Chloride Carbon Dioxide BUN Glucose POC Glucose 141 H 123 H 231 H Hemoglobin A1c Calcium Phosphorus 12/25/16 12/25/16 12/26/16 17:08 21:50 03:00 MCH Lymph % (Auto) [place] % (Auto) Seg Neutrophils % Sodium Potassium Chloride Carbon Dioxide BUN Glucose POC Glucose 217 H 288 H 149 H Hemoglobin A1c Calcium Phosphorus 12/26/16 12/26/16 12/26/16 04:33 04:33 11:26 MCH 27 L Lymph % (Auto) 48.6 H [place] % (Auto) 8.4 H Seg Neutrophils % 39.9 L Sodium Potassium Chloride Carbon Dioxide 21 L BUN Glucose 117 H POC Glucose 277 H Hemoglobin A1c Calcium Phosphorus 12/26/16 12/26/16 12/26/16 16:39 17:09 22:30 MCH Lymph % (Auto) [place] % (Auto) Seg Neutrophils % Sodium 136 L Potassium 3.4 L Chloride Carbon Dioxide 18 L BUN Glucose 275 H POC Glucose 276 H 160 H Hemoglobin A1c Calcium Phosphorus 12/27/16 12/27/16 12/27/16 05:45 06:26 08:05 MCH Lymph % (Auto) [place] % (Auto) Seg Neutrophils % Sodium Potassium Chloride Carbon Dioxide BUN 6 L Glucose 124 H POC Glucose 120 H 140 H Hemoglobin A1c Calcium Phosphorus 12/27/16 12/27/16 12/28/16 11:37 21:31 04:01 MCH 27 L Lymph % (Auto) 46.5 H [place] % (Auto) 9.1 H Seg Neutrophils % Sodium Potassium Chloride Carbon Dioxide BUN Glucose POC Glucose 243 H 203 H Hemoglobin A1c Calcium Phosphorus 12/28/16 12/28/16 12/28/16 04:01 07:35 11:35 MCH Lymph % (Auto) [place] % (Auto) Seg Neutrophils % Sodium Potassium Chloride Carbon Dioxide BUN Glucose 218 H POC Glucose 210 H 271 H Hemoglobin A1c Calcium 8.3 L Phosphorus 12/28/16 12/28/16 16:44 22:35 MCH Lymph % (Auto) [place] % (Auto) Seg Neutrophils % Sodium Potassium Chloride Carbon Dioxide BUN Glucose POC Glucose 232 H 270 H Hemoglobin A1c Calcium Phosphorus
[2016-12-30] MEDS: NOVOLOG SUB-Q SCH ×4 (08:25→22:16)
[2016-12-30] MEDS: NORVASC PO SCH (09:54)
[2016-12-30] MEDS: LOVENOX SUB-Q SCH (09:55)
[2016-12-30] MEDS: BABY ASPIRIN PO SCH (09:55)
[2016-12-30] MEDS: HALDOL IM PRN (12:04)
--- NOTE | 2016-12-30 14:51 | Progress Note ---
Assessment and Plan Assessment and plan: DKA - Treated according to DKA protocol - Patient started on long-acting insulin - Transferred to geriatric unit - Patient's hemoglobin A1c is 12.5 and she needed to be on insulin as an outpatient Dementia/ delirium/ metabolic encephalopathy - Patient isn't agitated - She is oriented only to self - I don't know her baseline Hypertension - Controlled Prophylaxis Lovenox Disposition - Pending [facility] placement - Patient Problems (1) Delirium Current Visit: Yes Status: Acute (2) Diabetic ketoacidosis Current Visit: Yes Status: Acute Qualifiers: Diabetes mellitus type: type 2 Diabetes mellitus complication detail: without coma Qualified Code(s): E13.10 - Other specified diabetes mellitus with ketoacidosis without coma (3) Altered mental status Current Visit: No Status: Acute Qualifiers: Altered mental status type: unspecified Coma depth: C Coma timing: C Qualified Code(s): R41.82 - Altered mental status, unspecified (4) Hypertension Current Visit: No Status: Chronic Qualifiers: Hypertension type: H History Interval history: Patient was agitated this morning, and wanted to go home, but she is incompetent to make decision. Hospitalist Physical - Physical exam Narrative exam: Not in cardiopulmonary distress. The patient appeared well nourished and normally developed. Vital signs as documented. Head exam is unremarkable. No scleral icterus . Neck is without jugular venous distension, thyromegaly, or carotid bruits. Lungs are clear to auscultation. Cardiac exam reveals regular rate and Rhythm. First and second heart sounds normal. No murmurs, rubs or gallops. Abdominal exam reveals normal bowel sounds, no masses, no organomegaly and no aortic enlargement. Extremities are nonedematous and both femoral and pedal pulses are normal. SALES DONOR RECRUITMENT REPRESENTATIVE: Alert and oriented 1. Agitated. - Constitutional Vitals: Temp Pulse Resp BP Pulse Ox 98.2 F 94 H 20 136/73 100 12/30/16 09:54 12/30/16 09:54 12/30/16 09:54 12/30/16 09:54 12/30/16 09:54 Results - Labs CBC & Chem 7: 12/28/16 04:01 12/28/16 04:01 Labs: Laboratory Last Values WBC 6.3 K/mm3 (4.5-11.0) 12/28/16 04:01 RBC 3.91 M/mm3 (3.65-5.03) 12/28/16 04:01 Hgb 10.5 gm/dl (10.1-14.3) 12/28/16 04:01 Hct 33.4 % (30.3-42.9) 12/28/16 04:01 MCV 85 fl (79-97) 12/28/16 04:01 MCH 27 pg (28-32) L 12/28/16 04:01 MCHC 32 % (30-34) 12/28/16 04:01 RDW 14.5 % (13.2-15.2) 12/28/16 04:01 Plt Count 195 K/mm3 (140-440) 12/28/16 04:01 Lymph % (Auto) 46.5 % (13.4-35.0) H 12/28/16 04:01 [place] % (Auto) 9.1 % (0.0-7.3) H 12/28/16 04:01 Eos % (Auto) 2.7 % (0.0-4.3) 12/28/16 04:01 Baso % (Auto) 0.4 % (0.0-1.8) 12/28/16 04:01 Lymph # 2.9 K/mm3 (1.2-5.4) 12/28/16 04:01 [place] # 0.6 K/mm3 (0.0-0.8) 12/28/16 04:01 Eos # 0.2 K/mm3 (0.0-0.4) 12/28/16 04:01 Baso # 0.0 K/mm3 (0.0-0.1) 12/28/16 04:01 Seg Neutrophils % 41.3 % (40.0-70.0) 12/28/16 04:01 Seg Neutrophils # 2.6 K/mm3 (1.8-7.7) 12/28/16 04:01 VBG pH 7.371 (7.320-7.420) 12/23/16 20:22 Sodium 137 mmol/L (137-145) 12/28/16 04:01 Potassium 3.8 mmol/L (3.6-5.0) 12/28/16 04:01 Chloride 103.3 mmol/L (98-107) 12/28/16 04:01 Carbon Dioxide 23 mmol/L (22-30) 12/28/16 04:01 Anion Gap 15 mmol/L 12/28/16 04:01 BUN 8 mg/dL (7-17) 12/28/16 04:01 Creatinine 0.9 mg/dL (0.7-1.2) 12/28/16 04:01 Estimated GFR > 60 ml/min 12/28/16 04:01 BUN/Creatinine Ratio 8.88 % 12/28/16 04:01 Glucose 218 mg/dL (65-100) H 12/28/16 04:01 POC Glucose 94 (70-105) 12/30/16 06:30 Hemoglobin A1c 12.5 % (4-6) H 12/24/16 18:41 Calcium 8.3 mg/dL (8.4-10.2) L 12/28/16 04:01 Phosphorus 2.0 mg/dL (2.5-4.5) L 12/24/16 00:01 Magnesium 2.2 mg/dL (1.7-2.3) 12/24/16 00:01 Total Bilirubin 0.6 mg/dL (0.1-1.2) 12/23/16 20:15 AST 26 units/L (5-40) 12/23/16 20:15 ALT 20 units/L (7-56) 12/23/16 20:15 Alkaline Phosphatase 127 units/L (35-129) 12/23/16 20:15 Troponin T < 0.010 ng/mL (0.00-0.029) 12/23/16 20:15 Total Protein 8.2 g/dL (6.3-8.2) 12/23/16 20:15 Albumin 4.5 g/dL (3.9-5) 12/23/16 20:15 Albumin/Globulin Ratio 1.2 % 12/23/16 20:15 Urine Color Straw (Yellow) 12/23/16 22:27 Urine Turbidity Clear (Clear) 12/23/16 22:27 Urine pH 5.0 (5.0-7.0) 12/23/16 22:27 Ur Specific [place] 1.030 (1.003-1.030) 12/23/16 22:27 Urine Protein 30 mg/dl mg/dL (Negative) 12/23/16 22:27 Urine Glucose (UA) >=500 mg/dL (Negative) 12/23/16 22: Urine Ketones 80 mg/dL (Negative) 12/23/16: Urine Blood Mod (Negative) 12/23/16: Urine Nitrite Neg (Negative) 12/23/16: Urine Bilirubin Neg (Negative) 12/23/16: Urine Urobilinogen < 2.0 mg/dL (<2.0) 12/23/16: Ur Leukocyte Esterase Neg (Negative) 12/23/16 22: Urine WBC (Auto) 2.0 /HPF (0.0-6.0) 12/23/16: Urine RBC (Auto) 5.0 /HPF (0.0-6.0) 12/23/16: U Epithel Cells (Auto) 1.0 /HPF (0-13.0) 12/23/16: Urine Mucus Few /HPF 12/23/16: Ketones 41.9 mg/dL (0.2-2.8) H 12/23/16 20:22
[2016-12-31] MEDS: HALDOL IM PRN (07:44)
[2016-12-31] MEDS: LOVENOX SUB-Q SCH (10:06)
[2016-12-31] MEDS: NOVOLOG SUB-Q SCH ×2 (11:11→11:15)
[2016-12-31] MEDS: BABY ASPIRIN PO SCH (11:16)
[2016-12-31] MEDS: NORVASC PO SCH (11:18)
[2016-12-31 11:25] VITALS: BP 130/63
--- NOTE | 2016-12-31 15:03 | Progress Note ---
Assessment and Plan - Patient Problems (1) Delirium Current Visit: Yes Status: Acute (2) Diabetic ketoacidosis Current Visit: Yes Status: Acute Qualifiers: Diabetes mellitus type: type 2 Diabetes mellitus complication detail: without coma Qualified Code(s): E13.10 - Other specified diabetes mellitus with ketoacidosis without coma (3) Altered mental status Current Visit: No Status: Acute Qualifiers: Altered mental status type: unspecified Coma depth: C Coma timing: C Qualified Code(s): R41.82 - Altered mental status, unspecified (4) Hypertension Current Visit: No Status: Chronic Qualifiers: Hypertension type: H History Interval history: Patient was sleepy this morning, but per the nurses the patient was agitated this morning, trying to go home. Hospitalist Physical - Constitutional Vitals: Temp Pulse Resp BP Pulse Ox 98.2 F 78 18 130/63 97 12/31/16 06:45 12/31/16 10:00 12/31/16 10:00 12/31/16 11:18 12/31/16 06:45 Results - Labs CBC & Chem 7: 12/28/16 04:01 12/28/16 04:01 Labs: Laboratory Last Values WBC 6.3 K/mm3 (4.5-11.0) 12/28/16 04:01 RBC 3.91 M/mm3 (3.65-5.03) 12/28/16 04:01 Hgb 10.5 gm/dl (10.1-14.3) 12/28/16 04:01 Hct 33.4 % (30.3-42.9) 12/28/16 04:01 MCV 85 fl (79-97) 12/28/16 04:01 MCH 27 pg (28-32) L 12/28/16 04:01 MCHC 32 % (30-34) 12/28/16 04:01 RDW 14.5 % (13.2-15.2) 12/28/16 04:01 Plt Count 195 K/mm3 (140-440) 12/28/16 04:01 Lymph % (Auto) 46.5 % (13.4-35.0) H 12/28/16 04:01 [place] % (Auto) 9.1 % (0.0-7.3) H 12/28/16 04:01 Eos % (Auto) 2.7 % (0.0-4.3) 12/28/16 04:01 Baso % (Auto) 0.4 % (0.0-1.8) 12/28/16 04:01 Lymph # 2.9 K/mm3 (1.2-5.4) 12/28/16 04:01 [place] # 0.6 K/mm3 (0.0-0.8) 12/28/16 04:01 Eos # 0.2 K/mm3 (0.0-0.4) 12/28/16 04:01 Baso # 0.0 K/mm3 (0.0-0.1) 12/28/16 04:01 Seg Neutrophils % 41.3 % (40.0-70.0) 12/28/16 04:01 Seg Neutrophils # 2.6 K/mm3 (1.8-7.7) 12/28/16 04:01 VBG pH 7.371 (7.320-7.420) 12/23/16 20:22 Sodium 137 mmol/L (137-145) 12/28/16 04:01 Potassium 3.8 mmol/L (3.6-5.0) 12/28/16 04:01 Chloride 103.3 mmol/L (98-107) 12/28/16 04:01 Carbon Dioxide 23 mmol/L (22-30) 12/28/16 04:01 Anion Gap 15 mmol/L 12/28/16 04:01 BUN 8 mg/dL (7-17) 12/28/16 04:01 Creatinine 0.9 mg/dL (0.7-1.2) 12/28/16 04:01 Estimated GFR > 60 ml/min 12/28/16 04:01 BUN/Creatinine Ratio 8.88 % 12/28/16 04:01 Glucose 218 mg/dL (65-100) H 12/28/16 04:01 POC Glucose 95 (70-105) 12/30/16 16:31 Hemoglobin A1c 12.5 % (4-6) H 12/24/16 18:41 Calcium 8.3 mg/dL (8.4-10.2) L 12/28/16 04:01 Phosphorus 2.0 mg/dL (2.5-4.5) L 12/24/16 00:01 Magnesium 2.2 mg/dL (1.7-2.3) 12/24/16 00:01 Total Bilirubin 0.6 mg/dL (0.1-1.2) 12/23/16 20:15 AST 26 units/L (5-40) 12/23/16 20:15 ALT 20 units/L (7-56) 12/23/16 20:15 Alkaline Phosphatase 127 units/L (35-129) 12/23/16 20:15 Troponin T < 0.010 ng/mL (0.00-0.029) 12/23/16 20:15 Total Protein 8.2 g/dL (6.3-8.2) 12/23/16 20:15 Albumin 4.5 g/dL (3.9-5) 12/23/16 20:15 Albumin/Globulin Ratio 1.2 % 12/23/16 20:15 Urine Color Straw (Yellow) 12/23/16 22:27 Urine Turbidity Clear (Clear) 12/23/16 22: Urine pH 5.0 (5.0-7.0) 12/23/16 22: Ur Specific [place] 1.030 (1.003-1.030) 12/23/16 22: Urine Protein 30 mg/dl mg/dL (Negative) 12/23/16 22: Urine Glucose (UA) >=500 mg/dL (Negative) 12/23/16 22: Urine Ketones 80 mg/dL (Negative) 12/23/16 22: Urine Blood Mod (Negative) 12/23/16 22: Urine Nitrite Neg (Negative) 12/23/16 22: Urine Bilirubin Neg (Negative) 12/23/16 22: Urine Urobilinogen < 2.0 mg/dL (<2.0) 12/23/16 22:27 Ur Leukocyte Esterase Neg (Negative) 12/23/16 22:27 Urine WBC (Auto) 2.0 /HPF (0.0-6.0) 12/23/16 22: Urine RBC (Auto) 5.0 /HPF (0.0-6.0) 12/23/16 22: U Epithel Cells (Auto) 1.0 /HPF (0-13.0) 12/23/16 22: Urine Mucus Few /HPF 12/23/16 22:27 Ketones 41.9 mg/dL (0.2-2.8) H 12/23/16 20:22
--- NOTE | 2016-12-31 15:09 | Discharge Summary ---
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 Primary care physician: RECYCLER Hospitalization Condition: Stable Disposition: DISCHARGED TO HOME OR SELFCARE Time spent for discharge: 31 minutes - Discharge Diagnoses (1) Delirium Status: Acute (2) Diabetic ketoacidosis Status: Acute Qualifiers: Diabetes mellitus type: type 2 Diabetes mellitus complication detail: without coma Qualified Code(s): E13.10 - Other specified diabetes mellitus with ketoacidosis without coma (3) Altered mental status Status: Acute Qualifiers: Altered mental status type: unspecified Coma depth: C Coma timing: C Qualified Code(s): R41.82 - Altered mental status, unspecified (4) Hypertension Status: Chronic Qualifiers: Hypertension type: H Core Measure Documentation - Palliative Care Palliative Care/ Comfort Measures: Not Applicable - Core Measures Any of the following diagnoses?: none Exam - Physical Exam Narrative exam: Not in cardiopulmonary distress. The patient is obese. Vital signs as documented. Head exam is unremarkable. No scleral icterus . Neck is without jugular venous distension, thyromegaly, or carotid bruits. Lungs are clear to auscultation. Cardiac exam reveals regular rate and Rhythm. First and second heart sounds normal. No murmurs, rubs or gallops. Abdominal exam reveals normal bowel sounds, no masses, no organomegaly and no aortic enlargement. Extremities are nonedematous and both femoral and pedal pulses are normal. 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 Demented with occasional agitation. - Constitutional Vitals: Temp Pulse Resp BP Pulse Ox 98.2 F 78 18 130/63 97 12/31/16 06:45 12/31/16 10:00 12/31/16 10:00 12/31/16 11:18 12/31/16 06:45 Plan Activity: no restrictions Weight Bearing Status: Full Weight Bearing Diet: low cholesterol, diabetic Follow up with: PRIMARY CARE, [Primary Care Provider] - 3-5 Days Prescriptions: amLODIPine [Norvasc] 5 mg PO DAILY #30 tablet Haloperidol [Haldol] 1 mg PO TID #90 tablet Insulin NPH/Regular [NovoLIN 70/30] 15 unit SUB-Q QPM #1 vial Insulin NPH/Regular [NovoLIN 30] 35 unit SUB-Q QAM #1 vial
== END 2016-12-31 19:31 | disposition home or self-care (01) | DRG 637 ==
LOC: ED 19:49 → CC1 23:45 → CC2 12-25 11:01
PROVIDERS: ADMIT Internal Medicine; ATTEND Internal Medicine
DX: E13.10 Other specified diabetes mellitus with ketoacidosis without coma (principal); G93.41 Metabolic encephalopathy; I10 Essential (primary) hypertension; E87.6 Hypokalemia; F03.90 Unspecified dementia, unspecified severity, without behavioral disturbance, psychotic disturbance, mood disturbance, and anxiety; E86.9 Volume depletion, unspecified; N17.9 Acute kidney failure, unspecified; E78.5 Hyperlipidemia, unspecified; R41.0 Disorientation, unspecified; Z91.19 Patient's noncompliance with other medical treatment and regimen
CPT/HCPCS: 36415; 71010; 80048; 80053; 81001; 82010; 82805; 82962; 83036; 83735; 84100; 84484; 85025; 85027; 93005; 93010; 96372; A9270-GY; J1630; J1650; J1815; J7030; J7040